=== PATIENT | female | born 1955 | race Caucasian/White ===

== ENCOUNTER 2016-11-11 13:00 | Outpatient (CLI) | payer MEDICAID | END 2016-11-11 13:01 | disposition home or self-care (01) | DX: G35 Multiple sclerosis (principal); F03.91 Unspecified dementia, unspecified severity, with behavioral disturbance; Z74.01 Bed confinement status; Z66 Do not resuscitate; Z51.5 Encounter for palliative care ==

== ENCOUNTER 2017-04-14 14:00 | Outpatient (CLI) | payer MEDICAID ==
--- NOTE | 2017-04-14 23:04 | PROVIDER PROGRESS NOTE ---
Palliative Care Follow Up - Referral Referring Provider: Dr. Bhupinder Willoughby Time of Visit: [id number] Referral setting: Home (patient is seen in her home setting secondary to it is a taxing and considerable effort for her to leave the home related to her functional status, mostly bedbound and dementia with behavioral disturbances) Referral Reason: MS - Information Sources History obtained from: Family (ex Uche, caregiver) Exam limitations: Clinical condition (patient with severe dementia and anxiety) - History of Present Illness Update Brief HPI Update: This is a 61 year old woman with multiple sclerosis, who has mostly been bedbound/chairbound the last two years. She is cared for at home by her ex- Uche. She has moderate to severe dementia with behavioral disturbances, for which I have been adjusting medications to manage her neuropsychiatric symptoms of agitation, anxiety, irritablility, perseverative behaviors, paranoia , hallucinations and ongoing delusions. For the most part there has been improvement, when she is agitated she yells "ow ow ow", currently managed on medication regimen with supplemental lorazepam 0.5 mg for escalation about twice a day, and diazepam (after failed lorazepam) about twice a week. Her caregiver uses several behavioral approaches as first line appropriately. She has fluctuating days as far as physical status, if use diazepam, cannot assist with pivot transfers so makes caregiving more difficult. She has not had any skin issues or infections. She has very poor dentition, teeth are broken off at roots, which has her on soft/pureed diet. Patient has not dental insurance, and would not tolerate at trip to address, currently has not abscessed or caused more pain. Social History - Living Situation Living arrangement: At home Living Situation: With caregiver(s) (cared for soley by ex Uche, who is also her paid [employer] worker. He himself has health limitations, is doing somewhat better but concern remains for termite exterminator helper plan if he declines) Support System: no other support, intermittent family visits, patient unable to tolerate the "commotion" is able to have visitors for about 15 minutes, [facility] visited over the weekend Medications/Allergies - Medications Home Medications: Ambulatory Orders Medication Instructions Recorded Confirmed Buspirone HCl 10 mg PO BID 04/14/17 04/14/17 Diazepam 10 mg PO Q8HR PRN 04/15/17 04/15/17 Lorazepam 0.5 - 1 mg PO Q6HR PRN 04/15/17 04/15/17 Polyethylene Glycol 3350 [Miralax] 17 gm PO DAILY PRN 04/15/17 04/15/17 Quetiapine Fumarate [Seroquel] 100 mg PO BID 04/15/17 04/15/17 Sertraline HCl 100 mg PO DAILY 04/15/17 04/15/17 - Allergies Allergies/Adverse Reactions: Allergies Allergy/AdvReac Type Severity Reaction Status Date / Time No Known Drug Allergies Allergy Verified 04/15/17 07:46 Review of Systems - Constitutional Constitutional: reports: Weakness, Other (remaining weight neutral per husbands perception) - Eyes Eyes: reports: Vision loss - Ears, Nose & Throat Ears, Nose & Throat: reports: Hearing loss, Dental decay (eating soft and pureed diet secondary to teeth decay) - Cardiovascular Cariovascular: denies: Chest pain - Respiratory Respiratory: denies: Cough, SOB at rest, SOB with exertion - Gastrointestinal Gastrointestinal: reports: Constipation (intermittent hard stools). denies: Nausea, Reflux/heartburn - Genitourinary Genitourinary: reports: Incontinence (about 50% of time) - Musculoskeletal Musculoskeletal: reports: Stiffness, Muscle weakness (on good days; can transfer to the chair/wheelchair for meals/bathing; on bad days bedbound and not up as he cannot lift her anymore) - Integumentary Integumentary: reports: Hair changes (grown weigh out; knotted but clean) - Neurological Neurological: reports: General weakness, Memory problems - Psychiatric Psychiatric: reports: Depression, Anxiety, Delusions (patient can speak in full sentences, answers questions socially but inaccurate; reports current regimen for agitation/anxiety mostly helpul; still anxious but responds to lorazepam, using about 2 x a day first; if fails moves on to diazepam but this sedates her and then can't transfer. This happens about 2 x a week) - Endocrine Endocrine: reports: Intolerance to heat (sleeps with just sheet; likes it cool, fan is on) - Hematologic/Lymphatic Hematologic/Lymphatic: denies: Recurrent infections - All Other Systems All Other Systems: reports: Reviewed and negative Physical Examination - Vital Signs Temperature: 97.4 C Pulse Rate: 51 Respiratory Rate: 18 O2 Saturation: 95 Blood Pressure: 92/52 - Physical Exam General Appearance: positive: No acute distress, Alert Eyes Bilateral: positive: Other (some separation of lower eyelid of left eye; not painful or red) ENT: positive: Other (with decaying teeth, broken and soft nubs at gum line) Neck: positive: Trachea midline. negative: Lymphadenopathy (R), Lymphadenopathy (L) Respiratory: positive: Breath sounds nml Cardiovascular: positive: Regular rate & rhythm Abdomen: positive: Nml bowel sounds, No distention Skin: positive: No symptoms, Other (coccyx clear) Extremities: positive: No pedal edema, Other (in bed; moves all extremeties) Neurologic/Psychiatric: positive: Disoriented to place, Disoriented to time, Other (shy today, not as much eye contact; less "chatty" but cooperative) Palliative Care - POLST Patient has POLST: Yes POLST Status: DNR, Comfort Measures Pain: Pain unchanged (patient when anxous yells "ow ow ow" but denies pain) Drowsiness: None Nausea: None Anxiety: Moderate (4-6) Dyspnea: None Anorexia: None Insomnia: Other (can escalate at nights at times, this usually indicates a few bad days with anxiety /agiation) Constipation: Yes Feelings of wellbeing/Perceived Quality of Life: No change (Uche feels patient qol better with balance of the medications; recognizes decline but not significant) Performance Status: Pateint mostly bedbound; up in recliner to eat most of the time if able to participate in pivot transfer and weight bear, otherwise fed in bed. Total assistance with [employer] of bladder and bowel about 50% of time - Palliative Care Discussion: Surrogate decision maker [Uche does make most of the decisions regarding her care ; her DPOA though for medical decision making is her daughter Dilia Calderon [phone] and Kyler is if unable or unwilling as alternate agent]. Vanna unaware of her illness or seriousness of her situation. Uche perceives she is plateaued at this time, small declines both functionally and cogntively, but feel doing better with medications balanced. His health is such, feeling can stay caregiver for the time being, doing some better himself. Has "projects" that keep him busy and distracted. Patient seems content; loves to watch [employer] and [facility] [place] the [place], does not offer any concerns or worries this visit. Impression and Recommendations - Palliative Care Impression: This is a 61 year old woman who is mostly chair/bedbound as a result of her MS and dementia. Her mood is fairly stable, though still having breakthrough anxiety. Current care situation stable for now. Recommendations/Counseling Done: 1. Multiple sclerosis, no significant further deterioration of physical status. Fluctuating ability to bear weight influenced by medications. 2. Dementia with behavioral disturbances. Through descriptions of management of anxiety and agitation, I believe it would be worth increasing the Buspar to 10 mg TID. Counseling on finding balance of sedation/anxiety and engagement with surroundings. Does appear from PRN medication use have made progress. Uche's perception is has made a difference in her management. 3. Advanced Care Planning. Patient without infections, weight loss, or increased symptom burden. Does remain at risk for decline but presenting on plateau today. Both satisfied with current quality of life, POLST in place, no change in care plan needed currently. Have done what is possible as far as putting together LTP if needed. Anticipatory guidance provided. Time Spent: 30 minutes with greater than 50% done in counseling regarding management of medications and anticipatory guidance.
== END 2017-04-14 14:01 | disposition home or self-care (01) ==
LOC: PC 14:00
PROVIDERS: ATTEND Nurse Practitioner Adult Health
DX: Z51.5 Encounter for palliative care (principal); G35 Multiple sclerosis; F03.91 Unspecified dementia, unspecified severity, with behavioral disturbance; Z74.01 Bed confinement status; R53.1 Weakness; H54.7 Unspecified visual loss; H91.90 Unspecified hearing loss, unspecified ear; K02.9 Dental caries, unspecified; K59.00 Constipation, unspecified; R32 Unspecified urinary incontinence; F32.9 Major depressive disorder, single episode, unspecified; F41.9 Anxiety disorder, unspecified; F22 Delusional disorders; Z66 Do not resuscitate
CPT/HCPCS: 99348

== ENCOUNTER 2017-09-11 13:10 | Outpatient (CLI) | payer MEDICAID ==
--- NOTE | 2017-09-11 21:05 | CONSULTATION NOTE ---
Palliative Care Follow Up - Referral Referring Provider: Estrella SMALLS Time of Visit: [id number] Referral setting: Home (Patient is seen in her home setting secondary is considerable and taxing effort for the patient leave her home, she is essentially bedbound able to transfer only on her good days. She is also limited by her severe dementia.) Referral Reason: MS/ Dementia with behavioral disturbances - Information Sources Records reviewed: Previous records reviewed History/Review of Systems obtained from: Family (Uche her ex-, is her anton[employer] worker and has provided most of the information.) Exam limitations: Clinical condition (Patient with limited ability to participate in exam, she can answer yes/no questions though she does confabulate quite a bit. She has no recall are any grounding in reality.) - History of Present Illness Update Brief HPI Update: This is a 62-year-old woman with multiple sclerosis, who is mostly been bedbound /chair bound for the last 2 years. She has had functional decline and appears to have had some weight loss, but does have underlying dementia with behavioral disturbances. Her neuropsychiatric symptoms include agitation anxiety irritability, perseverative behaviors, paranoia, hallucinations, and ongoing delusions. She is no longer responding to intermittent Lorazepam, but does respond to the diazepam when she gets as severely agitated. They are needing to use about 1-1 and half tabs a day again fluctuating status regarding this. She can go for long periods of time without any need for breakthrough medication For her behaviors, thus the medicines to titrate her antipsychotics any further. She has not had any skin breakdown, or infections, she has very poor dentition with teeth are broken at the roots and this is on a soft pured diet. At this point in time she not be able to tolerate a trip to have her teeth evaluated. No history been able to leave the home for doctor's appointments. Thus palliative care has been providing home visits to check on patient, address 's questions, and adjust medications accordingly. Social History - Living Situation Living arrangement: At home Living Situation: With caregiver(s) Support System: She does have children, the rarely visit, she has enjoyed it seen her new grandbaby over the holidays. Otherwise they are quite isolated. Medications/Allergies - Medications Home Medications: Ambulatory Orders Medication Instructions Recorded Confirmed Buspirone HCl 10 mg PO TID 04/14/17 09/13/17 Polyethylene Glycol 3350 [Miralax] 17 gm PO DAILY PRN 04/15/17 09/13/17 Quetiapine Fumarate [Seroquel] 100 mg PO BID 04/15/17 09/13/17 Sertraline HCl 100 mg PO DAILY 04/15/17 09/13/17 diazePAM [Diazepam] 5 - 10 mg PO Q8HR PRN 04/15/17 09/13/17 - Allergies Allergies/Adverse Reactions: Allergies Allergy/AdvReac Type Severity Reaction Status Date / Time No Known Drug Allergies Allergy Verified 04/15/17 07:46 Review of Systems - Constitutional Constitutional: reports: Fatigue, Weight loss (Unable to quantify just appears somewhat thinner, has been his concurrence with this. Her diet has become more challenging with only been able to take soft or pured foods. Does feel like he keeps a well-hydrated) - Eyes Eyes: reports: Vision loss (Unable to quantify changes but patient reports it is worse) - Ears, Nose & Throat Ears, Nose & Throat: reports: Dental decay. denies: Dental pain - Gastrointestinal Gastrointestinal: reports: Constipation (intermittent), Good appetite - Genitourinary Genitourinary: reports: Incontinence - Musculoskeletal Musculoskeletal: reports: Stiffness, Muscle weakness (Fluctuating days as far as patient able to participate in pivot transfers. With has-beens increasing difficulty with his own health patient needs to be able to weight-bear he cannot hold her up. If he finds that she is too weak he does not try to attempt transfer.) - Integumentary Integumentary: reports: Dryness - Neurological Neurological: reports: General weakness, Memory problems (Patient seems to be having more trouble tracking conversation, less full sentences, no initiation of questions. She does not present with word salad but definitely with word finding difficulty.) - Psychiatric Psychiatric: reports: Anxiety, Delusions, Hallucinations, Aggitation, Behavior disturbances (Has been reports "spells". These can be escalated for unknown reason since, he does try and figure out just like "a toddler" whether it is pain, temperature, needing to go to the bathroom, or hunger. Sometimes she just gets herself escalating and he uses the diazepam with success.) - Endocrine Endocrine: reports: Intolerance to heat (Patient likes a temperature in the room quite cool) - Hematologic/Lymphatic Hematologic/Lymphatic: denies: Recurrent infections - All Other Systems All Other Systems: reports: Reviewed and negative Physical Exam - Vital Signs Temperature: 97.8 C Pulse Rate: 76 Respiratory Rate: 18 O2 Saturation: 96 (ra @ rest) Blood Pressure: 102/62 - Physical Exam General Appearance: positive: No acute distress, Anxious Eyes Bilateral: positive: Normal inspection ENT: positive: Other (gums with swelling; patient picks and pulls at soft decaying teeth; no abscesses noted; patient denies pain on exam; does appear worsening) Neck: positive: Trachea midline. negative: Lymphadenopathy (R), Lymphadenopathy (L) Cardiovascular: positive: Regular rate & rhythm Respiratory: positive: Breath sounds nml Abdomen: positive: Non-tender, Soft, Nml bowel sounds Skin: positive: Pallor, Dryness. negative: Pressure wound Extremities: positive: No pedal edema, Other (Patient bedbound, was able to move something that those far as bed mobility, no signs of difficulty in moving any of her extremities.) Neurologic/Psychiatric: positive: Disoriented to place, Disoriented to time, Weakness, Flat affect Palliative Care - POLST Patient has POLST: Yes POLST Status: DNR, Comfort Measures Pain: Comment (She does not appear to have pain though when asked reports her back hurts, but she does have good bed mobility and her caregiver reports she does not report this on a consistent basisShe denies any sharp shooting pains, any numbness or tingling in her extremities,) Constipation: Yes, Unmanaged (Had been trying intermittent bowel meds, with "blow outs" attempting to find a good bowel program. Suspect has something to do with her diet and decrease fiber as well as bedbound), Intermittent constipation Performance Status: Patient is bedbound for the most part, on good days can give it to wheelchair or rolling walker, to get to the bathroom. They do try and get her there for bowel movements if possible otherwise she is very combative in changing of her diapers at times. He reports this is gotten easier over time, as she is gotten less strength, and it depends on the day it is not consistent. I would put her at a PPS of 40% - Palliative Care Discussion: Discussed at length concern regarding patient's current situation. There is surrogate decision maker is her daughter Dilia Calderon [phone]. Kyler is available as an alternative agent. Patient herself has very little insight into the seriousness of her illness or her situation. He currently is looking at his health, and wondering at this point how much longer he can support Vanna. He is expecting a transition in the next few months, he will be in touch with his physician obstetrician for the care for her. Patient had a difficult last 24 hours as the Internet went down, she was somewhat distressed As for the most part she spends her time watching the [employer]'s another easy-going shows. She gets quite bored, Uche does try to talk her down when she is in these episodes, but it has been a difficult road for them both. Results - Lab Results Lab and Imaging Results: Into 2 to draw labs, patient has very thin veins blue twice one in the left antecubital one on the right hand. Uche also reported she is probably less than hydrated given her difficult time the last 24 hours, the patient is unable to get out for labs. These were just going to be done in the context they have not been done for a while and she is on multiple medications. Impression and Recommendations - Palliative Care Impression: This is a 62-year-old woman with multiple sclerosis, and dementia with behavioral disturbances. She does show progression of her dementia, not so much her symptoms of MS other though she is much weaker, she is having less time that she is able to pivot transfer, he does not have signs or symptoms of neurogenic bladder or bowel. She is incontinent mostly with urine, intermittently with bowel. This is progression. She is going to be need to be placed in the next 2-3 months, Uche has tried previously to do some of this foot work, he is going to have to defer to her caseworkers. Recommendations/Counseling Done: 1. Multiple sclerosis, no significant further deterioration of her physical status, fluctuating ability to bear weight.Patient has hospital bed and appropriate equipment at this point in time, no further intervention needed 2. Dementia with behavioral disturbances. Patient on Seroquel 100 mg twice daily, BuSpar 10 mg 3 times daily, and her sertraline 100 mg daily. We did review her current behaviors, weighing benefits and burdens of further titration , has been intermittent and not sustained and managed currently with as needed dosing of diazepam which can be 1-2 doses a day or none for several days. Given there is no persistence of these symptoms and the diazepam is working for breakthrough anxiety and behaviors will leave it at this point in time. Advanced care planning patient's been without infections she does present today with small but perceivable weight loss in appearance, no change in her symptom burden. She of course does remain at risk for decline but currently presents is stable. Unfortunately unable to draw her labs today. She is actually quite cooperative to this process. She does have a DEEPTI ST in place as well as her daughter as DPO A, unfortunately Uche will have to default to the [facility] case assistant to find placement at the point in time he feels he can no longer care for her which she suspect is in the next few months. This is attributed to his own health problems and no longer able to meeting her needs. He had one a place for close to where family could visit, at this point in time he will defer to what ever is available. In looking at the [place] GNE index which looks a population of community dwelling adults age 65 years older and the outcome of all causes 1 year mortality. As a risk calculator cannot predict the future for any one individual. Risk calculator is given an estimate of how many people with similar risk factors will live and that cannot identify who will live and he will her score is a 4 which gives her risk of 1 year mortality of 14.6% Time Spent: 85 minutes with greater than 50% of this done in counseling and anticipatory guidance, weighing benefits and burdens of titrating meds at this point in time will make no changes, attempted blood draw 2 will attempt her next visit. Uche will contact me if further concerns are she is placed to allow palliative care to [place]
== END 2017-09-11 13:11 | disposition home or self-care (01) ==
LOC: PC 13:10
PROVIDERS: ATTEND Nurse Practitioner Adult Health
DX: Z51.5 Encounter for palliative care (principal); G35 Multiple sclerosis; F03.91 Unspecified dementia, unspecified severity, with behavioral disturbance; Z99.3 Dependence on wheelchair; Z74.01 Bed confinement status; R53.83 Other fatigue; K59.00 Constipation, unspecified; M62.81 Muscle weakness (generalized); F41.9 Anxiety disorder, unspecified; Z66 Do not resuscitate
CPT/HCPCS: 99349

== ENCOUNTER 2017-12-15 15:43 | Outpatient (CLI) | payer MEDICAID ==
--- NOTE | 2017-12-15 17:11 | CONSULTATION NOTE ---
Palliative Care Follow Up - Referral Referring Provider: Estrella SMALLS Time of Visit: 6315-3782 Referral setting: Home (It is a taxing and considerable effort for the patient to leave the home, she is mostly bedbound and would need ambulance transfer) Referral Reason: Multiple Sclerosis - Information Sources Records reviewed: Previous records reviewed History/Review of Systems obtained from: Family (caregiver Uche providing ROS) Exam limitations: Clinical condition (patient with short term memory issues; confabulation and delusions; able to answer yes and no; but answers unreliable) - History of Present Illness Update Brief HPI Update: This is a 62-year-old woman with multiple sclerosis, who has been mostly bedbound/chair bound for the last 2 years. She continues to have functional decline, she spends most of her day in bed, he does transfer her when she is able to bear weight and pivot, about 3 times a day to the arm chair next to her bed. He only occasionally uses the wheelchair, she has no trunk strength, does support her with sheet to transfer in bathroom for bowel movements. Long discussion regarding considering transitioning to another setting, particularly [facility]. He does understand patient at this point would not be able to be restrained in any way, including bed rails. She does have rail on back side of bed but uses that only for support when sitting up, has not fallen out of bed with left side open. He reports he does pivot her when she is feeling better, to the chair, but patient's legs often give out, and given his weakened back and inability to lift her, she has slid to the floor, as well as he is needed to support her upper torso. She is only able to tolerate being up in the chair about 15 minutes related to fatigue. She does have some scabs on her right knee, and bruising on her left thigh which are fading. She also has some bruising on her left upper arm as a result of these episodes where her legs give out. He reports she has not had any falls from impulsivity, nor has she tried to get out of bed, or out of the chair. Patient presents as much weaker, today she does have some upper extremity tremors, she does have upper and lower extremity muscle wasting. She does eat, has not had any choking, but given her poor dentition needs soft foods. Patient has always been cordial, interacted without any difficulty with exam, have been seen her since 10/16/2015. She does present with confabulation, delusions as far as her son dying recently, this was a event in the distant past , and very poor short-term memory issues. Her reports she still has anxiety attacks, these manifest as patient gets anxious, twisted her hair, and with curling up in the bed. He has been using the diazepam 10 mg with good results, she does have episodic moaning with this as well which responds to the diazepam , usually needs 1-2 a day, some days does not need some at all. Caregivers health, continues to deteriorate, he is no longer able to support her weight related to his back pain. He is also come to a crucial point as his lease will be up, he has been in touch with her case technician Hillary as well as her director Marlene. He was hoping to have her [facility], had met with Alyse, and understanding this point in time is this is not an option given her fall risk and previous behaviors documented. It was proposed to consider trial respite stay, unable to confirm care needs other than reported as my interactions have all been without problems. Social History - Living Situation Living arrangement: At home Living Situation: With caregiver(s) Support System: Uche, patient's ex-, has been her caregiver for the last 5 years. He is no longer able to physically do this, as well as feels like he needs to move on. Her children are not in a situation to be able to take on her caregiving needs, her daughter Dilia is her DPOAE. There is much concern about patient is a vulnerable adult, and seem to be homeless. Medications/Allergies - Medications Home Medications: Ambulatory Orders Medication Instructions Recorded Confirmed Buspirone HCl 10 mg PO TID 04/14/17 12/15/17 Quetiapine Fumarate [Seroquel] 100 mg PO BID 04/15/17 12/15/17 Sertraline HCl 100 mg PO ACHS 04/15/17 12/15/17 diazePAM [Diazepam] 5 - 10 mg PO Q8HR PRN 04/15/17 12/15/17 Cholecalciferol (Vitamin D3) 2,000 units PO DAILY 12/15/17 12/15/17 [Vitamin D3] Sennosides [Senna Lax] 8.6 mg PO DAILY PRN 12/15/17 12/15/17 - Allergies Allergies/Adverse Reactions: Allergies Allergy/AdvReac Type Severity Reaction Status Date / Time No Known Drug Allergies Allergy Verified 04/15/17 07:46 Review of Systems - Constitutional Constitutional: reports: Weakness, Weight loss (Uche feel minimal baseline wt. 115) - Eyes Eyes: reports: Vision loss - Ears, Nose & Throat Ears, Nose & Throat: reports: Hearing loss (mild), Dental decay (teeth rotting at gumline; no abcesses noted; denies pain) - Respiratory Respiratory: reports: Cough (in evenings not related to eating) - Genitourinary Genitourinary: reports: Incontinence - Musculoskeletal Musculoskeletal: reports: Transfer issues (patient often qing with pivot transfer if fatgued; has salazar if goes to floor) - Integumentary Integumentary: reports: Dryness - Neurological Neurological: reports: General weakness, Memory problems, Other (tremors) - Psychiatric Psychiatric: reports: Anxiety - Endocrine Endocrine: reports: Intolerance to heat - Hematologic/Lymphatic Hematologic/Lymphatic: denies: Recurrent infections - All Other Systems All Other Systems: reports: Reviewed and negative Physical Exam - Vital Signs Temperature: 96.8 C Pulse Rate: 78 Respiratory Rate: 18 O2 Saturation: 93 (ra @ rest) Blood Pressure: 122/72 - Physical Exam General Appearance: positive: No acute distress, Alert Eyes Bilateral: positive: Normal inspection ENT: positive: No signs of dehydration Neck: positive: Trachea midline. negative: Lymphadenopathy (R), Lymphadenopathy (L) Cardiovascular: positive: Regular rate & rhythm Respiratory: positive: Breath sounds nml Abdomen: positive: Non-tender, Soft, Nml bowel sounds Skin: positive: Dryness, Bruising. negative: Pressure wound Extremities: positive: No pedal edema, Other (muscle wasting upper and lower extremity) Neurologic/Psychiatric: positive: Disoriented to person, Disoriented to place, Disoriented to time, Weakness, Depressed mood/affect, Flat affect Palliative Care - POLST Patient has POLST: Yes POLST Status: DNR, Comfort Measures Pain: No pain Performance Status: Patient dependent for all the ADLs, fluctuating status for pivot transfers, fluctuating status as far as able to self-feed. Patient is mostly bedbound, up a few times for meals in recliner. - Palliative Care Discussion: Discussed at length again patient's current situation with antonio caregiver and ex- Uche. He is quite frustrated as he has felt like he has done due diligence in trying to locate a new setting for her. He has been in touch with his student financial aid manager Hillary, is unclear how much assistance he is going to be able to get from them. Patient denies any worries, when asked started talking about her son who , she was easily redirected to focus on her new grandson Juan Jose. She does live somewhat a limited life, she does enjoy watching the Chaudhary's, I suspect any kind of change or transition will take some time for her to adjust to. She also though may thrive with increased stimulation and interaction with other caregivers. Goals continue to be on a focus of comfort, recognizing her quality of life is limited, she has had ongoing slow decline, but no acute infections are escalation in symptoms. Impression and Recommendations - Palliative Care Impression: This is a 62-year-old woman with multiple sclerosis, and dementia with behavioral disturbances. She continues to show progression of her dementia, her behaviors have improved as far as agitation, though she still continues to have significant anxiety. She has had functional decline, she is incontinent mostly of urine, intermittently with bowel. It is more urgent now as far as placement need, palliative care [place] Recommendations/Counseling Done: 1. Multiple sclerosis. Patient has had continued functional decline. She has fluctuating status as well as increased tremors in her upper extremities. She denies any pain or discomfort. She is mostly bedbound, limited bed mobility. 2. Dementia with behavioral disturbances. Patient on Seroquel 100 mg twice daily, BuSpar 10 mg 3 times a day, and her sertraline 100 mg at bedtime. She has intermittent need for diazepam to manage her anxiety 1-2 doses a day, does have room for titration of medications if needed for adjustment to institution. At this point in time agreement was to leave things as is, as she has been doing fairly well on her current dosing. 3. Advanced care planning. Patient does have a DEEPTI ST in place, her daughter Dilia Calderon [phone] is her durable power of health trust and estates attorney. Uche has been the one working on finding placement, they have until the end of November, there is been conversation and discussion about possible respite stay as an interim measure. Uche's understanding is he is also to pursue other avenues, though has not been able to make progress with this in the past despite diligence. Time Spent: 50 minutes with greater than 50% of this done in counseling and anticipatory guidance, evaluating patient's current status, coordination of care regarding case technician, and pending placement.
== END 2017-12-15 15:44 | disposition home or self-care (01) ==
LOC: PC 15:43
PROVIDERS: ATTEND Nurse Practitioner Adult Health
DX: Z51.5 Encounter for palliative care (principal); G35 Multiple sclerosis; F03.91 Unspecified dementia, unspecified severity, with behavioral disturbance; F41.9 Anxiety disorder, unspecified; R53.1 Weakness; Z74.01 Bed confinement status; Z66 Do not resuscitate
CPT/HCPCS: 99349

== ENCOUNTER 2018-03-18 12:45 | Outpatient (CLI) | payer MEDICAID ==
--- NOTE | 2018-03-18 20:15 | CONSULTATION NOTE ---
Palliative Care Follow Up - Referral Referring Provider: Estrella SMALLS Time of Visit: 0015-1146 Referral setting: Home (It is a taxing and considerable effort for the patient to leave the home secondary to bedbound status) Referral Reason: MS/Dementia with behavioral disturbances - Information Sources Records reviewed: Previous records reviewed History/Review of Systems obtained from: Family ( provides the history) Exam limitations: Clinical condition (patient with dementia) - History of Present Illness Update Brief HPI Update: This is a 62-year-old woman with multiple sclerosis, who is mostly bedbound, Cared for by her ex- who has significant health problems himself. On good days he is able to transfer her to the rolling walker to ease toileting, but patient with fluctuating weakness and cognition, and legs will give out. During these times he does easier to the floor, and uses a Dillon transfer to get her back in bed. She does have significant fatigue, she does have some upper and lower extremity muscle wasting. She does have continued subtle changes of decline, she is less able to feed herself and needing increased assistance, more difficulty with bed mobility, and with cognitive decline needing more cueing and less able to help participate in her care. She also has underlying dementia with behavioral disturbances, because she is weaker is her easier to handle particularly around. Care and toileting. She does have intermittent anxiety, with escalation often needs diazepam, these are manifested by twisting her hair crying out and some delusions. He has cut her hair which has helped as far as some of their interactions, as she was not allowing for him to wash it or brushing on a regular basis and it was getting quite long. In spring, they were going to lose at least, Uche had made over 100 calls to various different facilities, he has put her name on list. Had found no place to be able to transition her to. This was a huge anxiety for them both, his landlord has allowed him to stay, but this has not addressed the issue of Uche's ongoing decline in health, reports they are "managing day-to-day". Social History - Living Situation Living arrangement: At home Living Situation: With caregiver(s) (patient cared for by ex-; extension of lease given; caregiver's health still of concern; Has been her caregiver for over 5 years,) Medications/Allergies - Medications Home Medications: Ambulatory Orders Medication Instructions Recorded Confirmed Buspirone HCl 10 mg PO TID 04/14/17 03/18/18 Quetiapine Fumarate [Seroquel] 100 mg PO BID 04/15/17 03/18/18 Sertraline HCl 100 mg PO ACHS 04/15/17 03/18/18 diazePAM [Diazepam] 5 - 10 mg PO Q8HR PRN 04/15/17 03/18/18 Cholecalciferol (Vitamin D3) 2,000 units PO DAILY 12/15/17 03/18/18 [Vitamin D3] Docusate Sodium [Dulcolax Stool 100 mg PO PRN PRN 03/18/18 03/18/18 Softener] - Allergies Allergies/Adverse Reactions: Allergies Allergy/AdvReac Type Severity Reaction Status Date / Time No Known Drug Allergies Allergy Verified 04/15/17 07:46 Review of Systems - Constitutional Constitutional: reports: Weight loss (appears thinner; no wts) - Ears, Nose & Throat Ears, Nose & Throat: reports: Dental decay (teeth breaking off at gum line; no s /s abcess/infection currently; has not observed any pain at this time; does not allow oral care) - Cardiovascular Cardiovascular: denies: Edema - Respiratory Respiratory: denies: Cough, SOB at rest - Gastrointestinal Gastrointestinal: reports: Constipation (intermittent responsive to SHONDA), Other (fluctuating appetite; usually eats a good breakfast; soft foods) - Genitourinary Genitourinary: reports: Incontinence - Musculoskeletal Musculoskeletal: reports: Stiffness, Muscle weakness, Transfer issues ( flucuating weakness; legs give out then needs to use dillon lift-about two times a week) - Integumentary Integumentary: reports: Hair changes (cut hair because patient not allow it to be brushed;) - Neurological Neurological: reports: General weakness, Memory problems (patient answers yes/ no questions unable to remember answers) - Psychiatric Psychiatric: reports: Behavior disturbances (mood fluctuates through day; often awake through night) - Endocrine Endocrine: reports: Intolerance to heat - Hematologic/Lymphatic Hematologic/Lymphatic: denies: Recurrent infections - All Other Systems All Other Systems: reports: Reviewed and negative Physical Exam - Vital Signs Temperature: 96.4 C Pulse Rate: 91 Respiratory Rate: 18 O2 Saturation: 94 (ra @ rest) Blood Pressure: 132/68 - Physical Exam General Appearance: positive: No acute distress Eyes Bilateral: positive: Normal inspection ENT: positive: Other (broken teeth along gum line; no s/s infection at this time ) Neck: positive: No JVD, Trachea midline Cardiovascular: positive: Regular rate & rhythm Respiratory: positive: Breath sounds nml Abdomen: positive: Non-tender, Soft, Nml bowel sounds Skin: positive: Pallor. negative: Pressure wound Extremities: positive: No pedal edema, Other (bedbound for exam; weak but can move all extremities on command; difficulty with bed mobilty assisted to turn) Neurologic/Psychiatric: positive: Disoriented to place, Disoriented to time, Weakness Palliative Care - POLST Patient has POLST: Yes POLST Status: DNR, Comfort Measures Pain: Location (Patient denies pain, Uche reports does seem to be uncomfortable at times i.e. if has constipation; difficulty communicating her distress) Sleep: Variable sleep pattern (Patient tends to be very wakeful late into the night, then sleeps quite a bit during the day. Does appear to be sleeping somewhat more, she does like to watch TV her favorite show is the Virool. He does not put anything disturbing on the television for her.) Performance Status: Patient dependent on caregiver for all ADLs and IADLs. He tries to read her fluctuating physical and functional status, to avoid risk of falls, it is easier to toilet her though in the bathroom, as far as changing in. Care as she can be less than cooperative in the bed and it is difficult for him to change her with his back. He reports and abuse in the Dillon about twice a week , he does know he can call for lift assist. She has not had any acute injuries , does get some bruising occasionally on her knees and her transfers - Palliative Care Discussion: Patient is very childlike in her appearance, is interactive with myself. No meaningful conversation or initiation of questions, unclear if her answers are correct though she is able to make eye contact and answer easy yes/no questions. She does follow some directions, but is quite limited as she is mostly bedbound. Caregiver does perceive a limited quality of life, but feels transitioning to another setting most likely would be even more distressful for her. There son is moving to [place], is unclear if is going to be more help. In discussing whether to use some of his antonio hours for respite, they are dependent on the finances to be able to stay there so this is a limited option. It is a difficult situation for both of them, Uche continues to try and take it just day by day. Impression and Recommendations - Palliative Care Impression: This is a 62-year-old woman with progressive dementia with behavioral disturbances, currently medicated by her current medication regimen. She also has underlying multiple sclerosis, with decreasing functional decline. Her current living situation is on hold, remains very tenuous as is dependent on her caregivers health. Palliative care available to provide support as issues arise, patient is bedbound and unable to get out of the house for appointments Recommendations/Counseling Done: 1. Dementia with behavioral disturbances. Patient currently on Seroquel 100 mg twice a day, BuSpar 10 mg 3 times daily, and sertraline 100 mg at bedtime. She has intermittent need for diazepam to manage her anxiety, there has been decreased use with this but averages about once a day. There is room for titration, but feels current balance is good of sedation and neuropsychiatric behaviors. 2. Multiple sclerosis. Patient continues to have ongoing subtle decline, she does have fluctuating both cognitive and physical status, putting her at risk for falls. Her care needs are becoming more complex, she is also needing assistance with feeding now. She is incontinent of bowel and bladder. She has not had any infections. 3. Advanced care planning. Patient does have a DEEPTI ST in place, do not attempt resuscitation and comfort measures. Her daughter Dilia Calderon [phone] is her DURABLE POWER OF BELT BACK OPERATOR, but is minimally involved. Uche her ex- is her antonio worker, and provides oversight in her care. Situation remains tenuous as far as no identified placement options, his commitment is to continue to provide support as long as he is physically able. Time Spent: 30 minutes with greater than 50% of this done in counseling, review of her medications and behaviors, and anticipatory guidance.
== END 2018-03-18 12:46 | disposition home or self-care (01) ==
LOC: PC 12:45
PROVIDERS: ATTEND Nurse Practitioner Adult Health
DX: Z51.5 Encounter for palliative care (principal); F03.91 Unspecified dementia, unspecified severity, with behavioral disturbance; G35 Multiple sclerosis; Z74.01 Bed confinement status; F41.9 Anxiety disorder, unspecified; K59.00 Constipation, unspecified; Z66 Do not resuscitate
CPT/HCPCS: 99348

== ENCOUNTER 2018-07-29 13:30 | Outpatient (CLI) | payer MEDICAID ==
--- NOTE | 2018-07-29 21:13 | CONSULTATION NOTE ---
Palliative Care Follow Up - Referral Referring Provider: Estrella SMALLS Time of Visit: [id number] Referral setting: Home (Patient is currently bedbound, will be a taxing and considerable effort for the patient leave the home would need ambulance transfer.) Referral Reason: MS/Dementia/Dysphagia - Information Sources Records reviewed: Previous records reviewed History/Review of Systems obtained from: Family (darlene ESPARZA caregiver, provides most of history; patient with some conversational sentences; but does not initiate information or provide accurate ROS) Exam limitations: Clinical condition (moderate dementia) - History of Present Illness Update Brief HPI Update: This is a 63-year-old woman I have been caring for on palliative care since 10/16/2015. She has advanced multiple sclerosis, who has had ongoing steady functional and cognitive decline. She was diagnosed originally in 2001 with her MS, with symptoms related to visual changes, and lower extremity weakness. She was originally able to ambulate a few steps, toilet, but has had ongoing decline to pivot transfers, now to bedbound status. She has had upper and lower extremity muscle wasting, does have some spasticity, intermittent discomfort. Her most recent presenting symptoms, which is why he has been called for me to visit, she has developed progressive dysphagia over the last several weeks to months. She currently is on a modified soft diet, though had 2 significant choking episodes last week which frightened her caregiver. She is able to drink thin fluids, does have some food pocketing, and unable to manage boluses of food and less is cut up quite tiny. Her cognitive status has on admit couple years ago was fairly significant behavioral symptoms, lashing out, screaming profanities, severe anxiety and agitation. Have titrated her meds to appears to a stable state. She has needed less diazepam for her outbursts, though still now patterns as an sundowning 25 and 8 in the evening. He reports she no longer screams and cries out but does still contort and seems in some kind of emotional distress, this does respond to the diazepam. Patient is easily fatigued, just through our exam she became quite tired. No signs or symptoms of breathlessness, no signs or symptoms of UTI. He reports she is sleeping 12-14 hours a day. Patient's most, and distraction is she does like to watch the [employer] on TV. Caregiver is now having to feed her and provide much more hands on care. Social History - Living Situation Living arrangement: At home Living Situation: With caregiver(s) (Patient has been cared for by her ex- Uche for greater than 5 years, he is paid as her antonio worker. Her daughter Dilia Calderon has both financial and medical durable power of health criminal attorney though Uche does make the day-to-day decisions regarding her care. She does see her children from time to time, she does have 6 children, one who has since passed. She has been on would be [place] for about 5 years. Patient was to be evicted from mobile home, X has been Uche does help health issues himself, unable to find placement for her but received a reprieve from the landlord. Uche is committed to caring for as long as he can physically, with her bedbound status and decreased behaviors her care has become easier.) Medications/Allergies - Medications Home Medications: Ambulatory Orders Medication Instructions Recorded Confirmed Buspirone HCl 10 mg PO TID 04/14/17 07/29/18 Quetiapine Fumarate [Seroquel] 100 mg PO BID 04/15/17 07/29/18 Sertraline HCl 100 mg PO ACHS 04/15/17 07/29/18 diazePAM [Diazepam] 5 - 10 mg PO Q8HR PRN 04/15/17 07/29/18 Cholecalciferol (Vitamin D3) 2,000 units PO DAILY 12/15/17 07/29/18 [Vitamin D3] Docusate Sodium [Dulcolax Stool 100 mg PO PRN PRN 03/18/18 07/29/18 Softener] - Allergies Allergies/Adverse Reactions: Allergies Allergy/AdvReac Type Severity Reaction Status Date / Time No Known Drug Allergies Allergy Verified 04/15/17 07:46 Review of Systems - Constitutional Constitutional: reports: Fatigue, Weight loss (pateint eating less, needing to have food cut in small pieces; reportedly gets 36 oz fluid a day). denies: Fever - Ears, Nose & Throat Ears, Nose & Throat: reports: Dental decay, Other (gums with swelling) - Respiratory Respiratory: reports: Cough (when eating). denies: SOB at rest - Gastrointestinal Gastrointestinal: reports: Constipation (bowels move about every 6-7 days), Other (increased diffiuclty with eating; dysphagia see HPI). denies: Nausea - Genitourinary Genitourinary: reports: Incontinence - Musculoskeletal Musculoskeletal: reports: Stiffness, Muscle weakness, Transfer issues (uses dillon to lift to change bed), Other (bedbound) - Integumentary Integumentary: reports: Dryness - Neurological Neurological: reports: General weakness, Memory problems - Psychiatric Psychiatric: reports: Depression, Anxiety, Delusions, Hallucinations, Behavior disturbances (decreasing) - Hematologic/Lymphatic Hematologic/Lymphatic: denies: Recurrent infections - All Other Systems All Other Systems: reports: Reviewed and negative Physical Exam - Vital Signs Temperature: 97.3 C Pulse Rate: 83 Respiratory Rate: 18 O2 Saturation: 91 (ra @ rest) Blood Pressure: 92/54 (faint to hear) - Physical Exam General Appearance: positive: No acute distress, Other (appears very tired; has not been recently medicated) Eyes Bilateral: positive: Normal inspection ENT: positive: Other (gums swollen; teeth broken at gumline) Neck: positive: Trachea midline Cardiovascular: positive: Regular rate & rhythm Respiratory: positive: Diminished in bases. negative: Wheezes, Rales, Rhonchi Abdomen: positive: Non-tender, Soft Skin: positive: Pallor, Dryness. negative: Pressure wound Extremities: positive: No pedal edema, Other (Patient very stiff and difficult to straighten extremities, tends to pull up, unclear if resistant, related disease, or behaviors. Patient has been bedbound for several months now) Neurologic/Psychiatric: positive: Disoriented to place, Disoriented to time, Weakness, Flat affect Palliative Care - POLST Patient has POLST: Yes POLST Status: DNR, Comfort Measures Pain: No pain Tiredness/Fatigue: Severe (7-10) Drowsiness/Sedation: Moderate (4-6) Nausea: None Depression: Moderate (4-6) Anxiety: Moderate (4-6) Constipation: Yes Performance Status: Patient is bedbound, this is a decline. Patient is needing feeding, pacing, has now presented with dysphagia and possible aspiration. Patient is bathed weekly, bed change. Chi[place]-care provided on a regular basis patient is incontinent of both bowel and bladder. Patient is sleeping more will put her at a PPS of 40% - Palliative Care Discussion: Introduced my recommendation regarding referral to hospice. Uche is very introverted and isolated, has only allowed me to come when there are care needs and for medication refills. Is very congenial and open to input, counseling, and appreciates the support. Patient with less behaviors, but does take a while to gain her trust and acceptance. She did seem to recognize me. He is hesitant to have people coming on a regular basis, I did review the hospice benefit, minimal of nursing visits and less patient changing every 2 weeks, as well as time to meet the team. He does feel with her current decline, that her care is actually easier, particularly with her behaviors not so ramped up. Did share given patient's cognitive decline, most likely unable to access [facility] if needed assist, and now she has high risk for choking even on saliva. Would not recommend leaving her alone. Hospice would be able to provide respite so he can get out and do errands and shopping etc. he reports he needs to think about it, will need to contact patient's daughter as she is at the POA. He perceives she is declining as well, when shared I felt like he she fits now in the less than 6 months prognosis category, he is in agreement. Counseling provided regarding pneumonia as a end of life event, option to treat or not treat, as well as if not treatment focus on comfort where hospice would become a good support for him. He will consider it if not soon, at least in the future. Patient in the past when she is more verbal and interactive, has somewhat perseverated on , Uche did share his brother came a couple months ago to visit, though her cognitive status is declined, may he reports she did have enough cognizant to ask him if he came to see her before she . They did as a couple lose a son to heart attack, he had down's syndrome and often comes up in past in conversation. Impression and Recommendations - Palliative Care Impression: This is a 63-year-old woman with progressive dementia and behavioral disturbances, multiple sclerosis, now presents with dysphagia and high risk for aspiration. She is cared for at home by her ex- Uche as his antonio worker, recommendation today to transition to hospice given patient's ongoing decline. Palliative care to continue to provide support until transition made. Recommendations/Counseling Done: 1. Dysphagia. Patient with decayed teeth, has always had to have modified diet secondary to chewing, now presents with significant difficulty with swallowing, choking, has been a gradual decline. Counseling and recommended pured diet, positioning to prevent aspiration. Instructed on crushing meds and putting them in pudding to better decrease her aspiration risk.Counseling provided can call 911 if choking or need assist, does not need to take her to the hospital but would provide assistance. Caregiver relieved with this information, encouraged to greet them at the door with DEEPTI ST form. Discussed if the role of hospice, could have speech therapy come out and give further instructions if would be helpful. 2. Dementia with behavioral disturbances. Patient does appear to have some sundowning, though is needed only diazepam during this time. From 6-8. Otherwise she is managed currently on her Seroquel 100 mg twice daily, BuSpar 10 mg 3 times daily secondary severe anxiety, and sertraline 100 mg at bedtime. 3. Multiple sclerosis. Patient continues to have ongoing decline, she now is bedbound. She is incontinent of bowel and bladder. They do use a Dillon for bed changes. Patient does present with stiffness, unclear if these are contractures, or related to her disease process. 4 Advanced care planning. Counseling provided regarding hospice and hospice benefit. Patient very difficult with strangers, though does seem much more mellow and less agitated with current medication regimen and decline in both cognitive and functional health. Uche reticent as does like his privacy and quiet, does find it overwhelming to have people visiting or in the house.Patient does have a DEEPTI ST in place, as a do not attempt resuscitation and comfort measures. Her daughter Dilia Calderon [phone] is her durable power of health criminal attorney, but is minimally involved. Uche her ex- is her antonio worker for greater than 5 years, and provides oversight in her care. Uche's health is compromised as well, though her care needs are less as she is deteriorated. He has tried multiple times to explore other placement options but has not been able to, though this is related to her past behaviors and most likely would better fit into a alf facility via environment at this point.He will ponder hospice referral either sooner or in the future and contact me when he is ready. Time Spent: Time spent 45 minutes with greater than 50% of this done in counseling regarding hospice benefit to management of dysphagia and anticipatory guidance and expected decline
== END 2018-07-29 13:31 | disposition home or self-care (01) ==
LOC: PC 13:30
PROVIDERS: ATTEND Nurse Practitioner Adult Health
DX: Z51.5 Encounter for palliative care (principal); R13.10 Dysphagia, unspecified; F03.91 Unspecified dementia, unspecified severity, with behavioral disturbance; G35 Multiple sclerosis; Z74.01 Bed confinement status; F05 Delirium due to known physiological condition; K59.00 Constipation, unspecified; Z66 Do not resuscitate
CPT/HCPCS: 99349

== ENCOUNTER 2018-09-04 17:27 | Outpatient (CLI) | payer MEDICAID | END 2018-09-04 17:28 | disposition critical access hospital (66) | LOC: EMS 17:27 | PROVIDERS: ATTEND Surgery | DX: R63.8 Other symptoms and signs concerning food and fluid intake (principal) | CPT/HCPCS: A0425; A0429; A0999 ==

== ENCOUNTER 2018-09-04 17:39 | Observation (INO) | payer MEDICAID ==
[2018-09-04] MEDS ORDERED: SODIUM CHLORIDE 0.9% 1,000 ML IV ONE (18:21)
--- NOTE | 2018-09-04 18:23 | ED Physician Documentation ---
History of Present Illness - Stated complaint Stated Complaint: FAILURE TO THRIVE - Chief complaint Chief Complaint: General - History obtained from History obtained from: Patient, Family (her ex emely) - History of Present Illness Timing: Other (This is a 63-year-old woman with history of MS and dementia who lives with her ex- who is her caregiver and her D POA. She is been in palliative care, hospice was discussed at the last visit but the patient did not want to be in hospice and the ex- states that she was cogent during the conversation. Over the last couple of weeks she has had a progressive decline, not eating or drinking and she has multiple bedsores that it started all of a sudden. She is been bedbound for the last 6 months.) Review of Systems Unable to obtain: Confused PD PAST MEDICAL HISTORY - Past Medical History Past Medical History: Yes Neuro: Dementia, Multiple sclerosis Psych: Depression - Past Surgical History Past Surgical History: Yes /IT APPLICATION SUPPORT ANALYST: Dilation and currettage - Present Medications Home Medications: Ambulatory Orders Medication Instructions Recorded Confirmed Buspirone HCl 10 mg PO TID 04/14/17 07/29/18 Quetiapine Fumarate [Seroquel] 100 mg PO BID 04/15/17 07/29/18 diazePAM [Diazepam] 5 - 10 mg PO Q8HR PRN 04/15/17 07/29/18 Trazodone HCl 100 mg PO QPM 09/04/18 09/04/18 - Allergies Allergies/Adverse Reactions: Allergies Allergy/AdvReac Type Severity Reaction Status Date / Time No Known Drug Allergies Allergy Verified 04/15/17 07:46 - Social History Does the pt smoke?: No Smoking Status: Never smoker Does the pt drink ETOH?: No Does the pt have substance abuse?: No - Immunizations Immunizations are current?: No - POLST Patient has POLST: Yes PD ED PE NORMAL - Vitals Vital signs reviewed: Yes - General General: Other (She is somnolent but arousable, follows commands. She appears very dry) - HEENT HEENT: No: Moist mucous membranes - Neck Neck: Supple, no meningeal sign, No bony TTP - Cardiac Cardiac: RRR, No murmur - Respiratory Respiratory: No respiratory distress, Other (Left basilar rhonchi) - Abdomen Abdomen: Non tender - Back Back: No CVA TTP, No spinal TTP - Derm Derm: Other (Multiple pressure sores, most of which are grade 1 including the sacrum, left iliac, left scapula, left axilla. She has a grade 2 over the right ankle.) Results - Vitals Vitals: Vital Signs - 24 hr 09/04/18 17:47 Temperature 36.4 C L Heart Rate 95 Respiratory 16 Rate Blood Pressure 98/69 O2 Saturation 95 Oxygen O2 Source Room air - Labs Labs: Laboratory Tests 09/04/18 09/04/18 09/04/18 18:16 18:16 18:16 WBC 9.9 RBC 4.94 Hgb 14.4 Hct 44.1 MCV 89.4 MCH 29.1 MCHC 32.6 RDW 14.6 Plt Count 245 MPV 7.8 L Neut # (Auto) 7.3 H Lymph # (Auto) 1.8 [place] # (Auto) 0.6 Eos # (Auto) 0.1 Baso # (Auto) 0.1 Absolute Nucleated RBC 0.02 Nucleated RBC % 0.2 PT 11.7 INR 1.0 Sodium 143 Potassium 3.3 L Chloride 101 Carbon Dioxide 31 Anion Gap 11.0 BUN 23 H Creatinine 0.7 Estimated GFR (MDRD) 85 L Glucose 116 H Lactic Acid Calcium 9.3 Total Bilirubin 0.3 AST 20 ALT 18 Alkaline Phosphatase 107 Total Protein 7.5 Albumin 3.2 Globulin 4.3 H Albumin/Globulin Ratio 0.7 L Lipase 23 09/04/18 18:16 WBC RBC Hgb Hct MCV MCH MCHC RDW Plt Count MPV Neut # (Auto) Lymph # (Auto) [place] # (Auto) Eos # (Auto) Baso # (Auto) Absolute Nucleated RBC Nucleated RBC % PT INR Sodium Potassium Chloride Carbon Dioxide Anion Gap BUN Creatinine Estimated GFR (MDRD) Glucose Lactic Acid 1.2 Calcium Total Bilirubin AST ALT Alkaline Phosphatase Total Protein Albumin Globulin Albumin/Globulin Ratio Lipase - Rads (name of study) 1v chest Radiology: EMP read contemporaneously (NAD) PD MEDICAL DECISION MAKING - ED course ED course: This is a 63-year-old woman with dementia and multiple sclerosis who presents with worsening mental status and evidence of dehydration. Per the Ex-/caregiver/D POA she did not want to enter hospice. She has had a progressive failure decline and will need wound care and placement and I spoke with Dr. Escobedo for observation at 7:15 PM. Departure - Departure Disposition: ED Place in Observation Clinical Impression: Multiple sclerosis Dementia Qualifiers: Dementia type: unspecified type Dementia behavioral disturbance: without behavioral disturbance Qualified Code(s): F03.90 - Unspecified dementia without behavioral disturbance Failure to thrive Qualifiers: Failure to thrive age range: in adult Qualified Code(s): R62.7 - Adult failure to thrive Pressure ulcer Qualifiers: Pressure injury location: unspecified location Pressure injury stage: stage 2 Qualified Code(s): L89.92 - Pressure ulcer of unspecified site, stage 2 Condition: Stable
[2018-09-04 18:26] LABS: BASOPHILS # (AUTO) 0.1 10^3/uL (0.0-0.1); BASOPHILS % (AUTO) 0.7 %; EOSINOPHILS # (AUTO) 0.1 10^3/uL (0.0-0.7); EOSINOPHILS % (AUTO) 0.8 %; HGB - HEMOGLOBIN 14.4 g/dL (12.0-16.0); LYMPHOCYTES # (AUTO) 1.8 10^3/uL (1.5-3.5); LYMPHOCYTES % (AUTO) 18.6 %; MEAN CORPUSCULAR HEMOGLOBIN 29.1 pg (27.0-31.0); MEAN CORPUSCULAR HGB CONC 32.6 g/dL (32.0-36.0); MEAN CORPUSCULAR VOLUME 89.4 fL (81.0-99.0); MEAN PLATELET VOLUME 7.8 fL (7.9-10.8); MONOCYTES # (AUTO) 0.6 10^3/uL (0.0-1.0); NEUTROPHILS # (AUTO) 7.3 10^3/uL (1.5-6.6); NEUTROPHILS % (AUTO) 73.9 %; PLT - PLATELET COUNT 245 10^3/uL (130-450); RED BLOOD COUNT 4.94 10^6/uL (4.20-5.40); RED CELL DISTRIBUTION WIDTH 14.6 % (12.0-15.0); WHITE BLOOD COUNT 9.9 x10^3/uL (4.8-10.8)
[2018-09-04 18:28] LABS: PT - PROTHROMBIN TIME 11.7 secs (9.9-12.6)
[2018-09-04 18:36] LABS: ALBUMIN 3.2 g/dL (3.2-5.5); ALBUMIN/GLOBULIN RATIO 0.7 (1.0-2.2); BILIRUBIN,TOTAL 0.3 mg/dL (0.2-1.0); CALCIUM 9.3 mg/dL (8.5-10.3); CREATININE 0.7 mg/dL (0.4-1.0); TOTAL PROTEIN 7.5 g/dL (6.7-8.2)
--- NOTE | 2018-09-04 19:15 | XRAY Report ---
Reason: abn breath sounds, cough Procedure Date: 09/04/2018 Accession Number: [id number] / [id number] Procedure: XR - Chest 1 View X-Ray CPT Code: 84621 FULL RESULT: EXAM: CHEST RADIOGRAPHY EXAM DATE: 09/04/2018 06:41 PM. CLINICAL HISTORY: Abn breath sounds, cough. COMPARISON: None. TECHNIQUE: 1 view. FINDINGS: Lungs/Pleura: No focal opacities evident. No pleural effusion. No pneumothorax. Mediastinum: Within exam limitations, the cardiomediastinal contour is normal. Other: None. IMPRESSION: Normal single view chest. RADIA
[2018-09-04 19:20] LABS: BILIRUBIN,URINE NEGATIVE (NEGATIVE); GLUCOSE, URINE (UA) NEGATIVE (NEGATIVE); KETONES,URINE (UA) TRACE mg/dL (NEGATIVE); LEUKOCYTE ESTERASE, URINE LARGE (NEGATIVE); NITRITE,URINE NEGATIVE (NEGATIVE); OCCULT BLOOD,URINE MODERATE (NEGATIVE); PROTEIN,URINE >=300 mg/dL (NEGATIVE); UROBILINOGEN,URINE 0.2 (NORMAL) E.U./dL (NORMAL)
[2018-09-04 19:22] LABS: CLARITY,URINE TURBID (CLEAR)
[2018-09-04 19:23] LABS: BACTERIA,URINE Many /HPF (None Seen); SQUAMOUS EPITHELIAL CELL,UR NONE SEEN (<= Few); WBC CLUMPS,URINE PRESENT
[2018-09-04] MEDS ORDERED: cefTRIAXone 1 GM in SODIUM CHLORIDE 0.9% MINIBAG 100 ML IV STA (19:45)
[2018-09-04] MEDS ORDERED: SODIUM CHLORIDE FLUSH 0.9% 10 ML SYRINGE IVP PRN (19:46)
[2018-09-04] MEDS ORDERED: ONDANSETRON 4 MG/2 ML VIAL IVP PRN (19:46)
[2018-09-04] MEDS ORDERED: ONDANSETRON ODT 4 MG TABLET TL PRN (19:46)
[2018-09-04] MEDS ORDERED: ACETAMINOPHEN 325 MG TABLET PO PRN (19:46)
[2018-09-04] MEDS ORDERED: DEXTROSE 5%-0.9% NACL 1,000 ML IV SCH (20:00)
[2018-09-04] MEDS: busPIRone 5 MG TABLET PO SCH (21:32)
[2018-09-04] MEDS: FAMOTIDINE 20 MG TABLET PO SCH (21:33)
[2018-09-04] MEDS: traZODone 50 MG TABLET PO SCH (21:33)
[2018-09-04] MEDS: MIRTAZAPINE 15 MG TABLET PO SCH (21:33)
--- NOTE | 2018-09-04 23:18 | HISTORY & PHYSICAL EXAMINATION ---
Chief Complaint - Chief Complaint Chief Complaint: Poor appetite, FTT/Anorexia, weakness and dehydrated History of Present Illness - Admitted From Admitted From:: ED - History Obtained From Records Reviewed: yes History obtained from: DPOA-ex Exam Limitations: Patient demented - History of Present Illness HPI Comment/Other: This is a 63-year-old woman with history of MS and dementia who lives with her ex- who is her caregiver and her DPOA. She is been in palliative care, hospice was discussed at the last visit but the patient did not want to be in hospice and the ex- states that she was cognitive during the conversation. Over the last couple of weeks she has had a progressive decline, not eating or drinking and she has multiple bedsores that it started all of a sudden. She is been bedbound for the last 6 months. On labs patient has a UTI although due to her demented status unable to convey dysuria but grimaces on pelvic palpation, is somewhat contracted, has K 3.3, BMI 20.1 and looks ca chectic and chronically ill-appearing. VSS with bp 98/69 and appears to be dry clinically. She wants to be FULL code per DPOA. History - Past Medical History Cardiovascular: reports: None Respiratory: reports: None Neuro: reports: Dementia, Multiple sclerosis, Other Endocrine/Autoimmune: reports: None GI: reports: Other : reports: Incontinence HEENT: reports: Chronic vision loss Psych: reports: Depression Musculoskeletal: reports: Fatigue, Other Derm: reports: None Other Past Medical History: Vertigo, incontinent, contractures - Past Surgical History /COLOR EXPERT: reports: Dilation and currettage - POLST Patient has POLST: Yes Meds/Allgy - Home Medications Home Medications: Ambulatory Orders Medication Instructions Recorded Confirmed Buspirone HCl 10 mg PO TID 04/14/17 09/04/18 Quetiapine Fumarate [Seroquel] 100 mg PO BID 04/15/17 09/04/18 diazePAM [Diazepam] 5 mg PO Q8HR PRN 04/15/17 09/04/18 Trazodone HCl 100 mg PO QPM 09/04/18 09/04/18 - Allergies Allergies/Adverse Reactions: Allergies Allergy/AdvReac Type Severity Reaction Status Date / Time No Known Drug Allergies Allergy Verified 04/15/17 07:46 Review of Systems - Constitutional Constitutional: reports: Fatigue, Weakness, Poor appetite, Weight loss - Ears, Nose & Throat Ears, Nose & Throat: denies: Tinnitus, Vertigo - Cardiovascular Cariovascular: denies: Palpitations, Chest pain - Respiratory Respiratory: denies: Cough - Musculoskeletal Musculoskeletal: denies: Muscle pain - Neurological Neurological: reports: Memory problems - Psychiatric Psychiatric: reports: Depression - All Other Systems All Other Systems: reports: Reviewed and negative Prior Level of Functionality: Patient bed bound for more than 6 months Exam - Vital Signs Reviewed Vital Signs: Yes Vital Signs: Vital Signs x48h Temp Pulse Pulse Resp BP BP Pulse Ox 09/04/18 20:30 36.8 C 95 22 142/82 H 96 09/04/18 20:15 36.4 C L 92 20 104/66 94 09/04/18 17:47 36.4 C L 95 16 98/69 95 Hypotensive AF, HR 95, 95% RA - Physical Exam General Appearance: positive: Lethargic, Other (Chronically ill-appearing and cachectic) ENT: positive: Dry mucous membranes Neck: positive: Trachea midline. negative: No JVD, Thyromegaly Cardiovascular: positive: Regular rate & rhythm, No murmur, No gallop. n egative: Irregularly irregular Peripheral Pulses: positive: 2+ Abdomen: positive: Tenderness, Other. negative: No organomegaly, No distention, Bruit Extremities: positive: Non-tender, Other. negative: Joint swelling Neurologic/Psychiatric: positive: Disoriented to person, Disoriented to place, Disoriented to time (SP pain on deep palpation) Sepsis Event Note (H) - Evaluation Current Stage of Sepsis: Ruled out Conclusion/Plan - Problem List (1) UTI (urinary tract infection) Conclusion/Plan: Likely from urinary stasuis and being bedbound. IV rocephin to continue. Qualifiers: Urinary tract infection type: site unspecified (2) Failure to thrive Conclusion/Plan: Anorexia seen as well, due to progressive dementia with possible underlying OP- dysphagia, would have ST to eval for OP-dysphagia and food consistency. Would start megace plus remeron as she has hx depression/anxiety Qualifiers: Failure to thrive age range: in adult Qualified Code(s): R62.7 - Adult failure to thrive (3) Protein-calorie malnutrition, moderate Conclusion/Plan: Present on Admission. Moderate to severe protein calorie malnutrition with a BMI 19, weight loss nutritional intae <50% of recommended intake <2weeks, muscle wasting seen on exam with cachexia, and evidence of pressure ulcers, Dietitian consult, improve hydration and nutritional status, megace and remeron initiated. Boost/Ensure cans TID. May need calorie counting. (4) Dementia Conclusion/Plan: Seems progressive and with OP-dysphagia now with nutritional def. Aspiration precautions. ST to eval for food consistencies. Qualifiers: Dementia type: unspecified type Dementia behavioral disturbance: without behavioral disturbance Qualified Code(s): F03.90 - Unspecified dementia without behavioral disturbance (5) Pressure ulcer Conclusion/Plan: Present on admission, multiple sores but there is a noticeable, likely related to poor nutritional status. Stage 2 pressure ulcer to right heel. Air mattress, cushioned heel protectors, frequent turning, optimize nutrition and avoid skin breakdown with emollients or barrier protection creams. Wound care consult. Qualifiers: Pressure injury location: heel Pressure injury stage: stage 2 Laterality: right Qualified Code(s): L89.612 - Pressure ulcer of right heel, stage 2 (6) Multiple sclerosis Conclusion/Plan: Progressive with the need for palliative care services to recommend hospice, however patient is a full code at this point at would be needing this to be re- addressed as the likelihood of complications from MS and progressive dementia are present. (7) Dehydration Conclusion/Plan: Place on IVF's, correct electrolytes, check labs in am (8) Hypokalemia Conclusion/Plan: Sec to nutritional def and poor oral fluid intake. Replace K, check mag and renal panel in am. - Lab Results Lab results reviewed: Yes Fish Bones: 09/05/18 05:08 09/05/18 05:08 - Diagnostic Imaging Results Diagnostic Imaging Results: positive: Final report reviewed - EKG Results EKG Interpreted Independently: No Core Measures - Anticipated LOS I expect patient to be DC'd or transferred within 96 hours.: Yes - Issues Hospital Issues and Management Plan: Palliative care consult needed, Hospice recommended - DVT/VTE - Prophylaxis VTE/DVT Device ordered at admit?: No Not Ordered - Medical Reason: Not indicated VTE/DVT Prophylaxis med ordered at admit?: Yes - Stroke - Rehab Assessment Rehab services assessment to be ordered?: No - AMI - Statin at Admit Aspirin Prescribed on Admit: No Not Ordered - Medical Reason: Not indicated
[2018-09-04] MEDS ORDERED: POTASSIUM CHLOR 20 MEQ/100 ML 20 MEQ/100 ML BAG IV SCH (23:34)
[2018-09-05] MEDS: POTASSIUM CHLOR 10 MEQ/100 ML 10 MEQ/100 ML BAG IV SCH ×2 (01:19→02:21)
[2018-09-05] MEDS: SODIUM CHLORIDE FLUSH 0.9% 10 ML SYRINGE IVP SCH ×3 (02:39→17:35)
[2018-09-05 05:50] LABS: BASOPHILS % (AUTO) 0.7 %; EOSINOPHILS # (AUTO) 0.1 10^3/uL (0.0-0.7); HGB - HEMOGLOBIN 12.3 g/dL (12.0-16.0); LYMPHOCYTES # (AUTO) 1.6 10^3/uL (1.5-3.5); MEAN CORPUSCULAR HEMOGLOBIN 29.5 pg (27.0-31.0); MEAN CORPUSCULAR HGB CONC 32.6 g/dL (32.0-36.0); MEAN CORPUSCULAR VOLUME 90.4 fL (81.0-99.0); MEAN PLATELET VOLUME 7.9 fL (7.9-10.8); MONOCYTES # (AUTO) 0.4 10^3/uL (0.0-1.0); MONOCYTES % (AUTO) 6.6 %; NEUTROPHILS # (AUTO) 3.7 10^3/uL (1.5-6.6); NEUTROPHILS % (AUTO) 63.7 %; PLT - PLATELET COUNT 217 10^3/uL (130-450); RED BLOOD COUNT 4.16 10^6/uL (4.20-5.40); RED CELL DISTRIBUTION WIDTH 14.3 % (12.0-15.0); WHITE BLOOD COUNT 5.9 x10^3/uL (4.8-10.8)
[2018-09-05 05:59] LABS: ALBUMIN 2.6 g/dL (3.2-5.5); CREATININE 0.6 mg/dL (0.4-1.0); PHOSPHORUS 2.2 mg/dL (2.5-4.6)
[2018-09-05] MEDS ORDERED: POTASSIUM CHLORIDE 20 MEQ TABLET PO ONE (06:03)
[2018-09-05] MEDS ORDERED: POTASSIUM PHOSPHATE 21 MMOL in SODIUM CHLORIDE 0.9% 250 ML IV ONE (06:03)
[2018-09-05] MEDS ORDERED: DEXTROSE 5%-LACTATED RINGERS 1,000 ML IV SCH (06:11)
[2018-09-05] MEDS: busPIRone 5 MG TABLET PO SCH ×3 (06:35→22:21)
[2018-09-05] MEDS ORDERED: cefTRIAXone 1 GM VIAL IV SCH (09:00)
[2018-09-05] MEDS: ENOXAPARIN 40 MG/0.4 ML SYRINGE SUBQ SCH (09:12)
[2018-09-05] MEDS: FAMOTIDINE 20 MG TABLET PO SCH ×2 (09:15→20:09)
[2018-09-05] MEDS: MEGESTROL 400 MG/10 ML UDC PO SCH (09:15)
[2018-09-05] MEDS: POLYETHYLENE GLYCOL 3350 17 GM PACKET PO SCH (09:15)
[2018-09-05] MEDS: NS W/20 MEQ KCL 1,000 ML IV SCH ×2 (09:59→17:35)
--- NOTE | 2018-09-05 12:59 | PROVIDER PROGRESS NOTE ---
Subjective - Prog Note Date Prog Note Date: 09/05/18 Prog Note Time: 13:03 - Subjective Pt reports feeling: Improved Subjective: Vanna states that she has a poor appetite, and that her buttocks hurts. She denies chest pain, nausea, vomiting, a rash, dizziness, or a new cough. Current Medications - Current Medications Current Medications: Active Medications: Acetaminophen (Tylenol) 650 mg PO Q4HR PRN Hydrocodone Bitart/Acetaminophen ([place] 5/325) 1 tab PO Q4HR PRN Buspirone HCl (Buspar) 10 mg PO TID [place] Chlorhexidine Gluconate (Peridex) 15 ml PO BID [place] Enoxaparin Sodium (Lovenox) 40 mg SUBQ DAILY [facility] Famotidine (Pepcid) 20 mg PO BID [facility] Ceftriaxone Sodium 1 gm/ (Sodium Chloride) 100 mls @ 200 mls/hr IV Q24H [facility] Potassium Chloride/Sodium Chloride (Normal Saline 0.9% W/20 Meq Kcl) 1,000 mls @ 125 mls/hr IV .Q8H [facility] Megestrol Acetate (Megace) 800 mg PO DAILY [facility] Mineral Oil (Cavilon) 1 applic TOP PRN PRN Mirtazapine (Remeron) 7.5 mg PO QPM [facility] Ondansetron HCl (Zofran Inj) 4 mg IVP Q6HR PRN Ondansetron HCl (Zofran Odt) 4 mg TL Q6HR PRN Polyethylene Glycol (Miralax) 17 gm PO DAILY [facility] Sodium Chloride (Normal Saline Flush 0.9%) 10 ml IVP PRN PRN Sodium Chloride (Normal Saline Flush 0.9%) 10 ml IVP 0100,0900,1700 [place] Trazodone HCl (Desyrel) 100 mg PO QPM [facility] HOME meds: Buspirone HCl 10 mg PO TID 04/14/17 Quetiapine Fumarate [Seroquel] 100 mg PO BID 04/15/17 diazePAM [Diazepam] 5 mg PO Q8HR PRN 04/15/17 Trazodone HCl 100 mg PO QPM 09/04/18 Objective - Vital Signs/Intake & Output Reviewed Vital Signs: Yes Vital Signs: Vital Signs x48h Temp Pulse Resp BP Pulse Ox 09/05/18 07:52 36.4 C L 96 14 92/50 L 96 Intake & Output: Intake & Output 09/02/18 09/03/18 09/04/18 09/05/18 23:59 23:59 23:59 23:59 Intake Total 5736.166 3077.833 Balance 1601.619 9644.833 - Objective General Appearance: positive: No acute distress, Alert Eyes Bilateral: positive: PERRL Eyes: OU Conjunctivae pale ENT: positive: Oral lesions, Dry mucous membranes, Other (tooth malformation) Neck: positive: Thyroid nml, No JVD, Trachea midline Respiratory: positive: Chest non-tender, No respiratory distress, Rhonchi, Other (shallow breathing-chronic) Cardiovascular: positive: Regular rate & rhythm, No gallop, Systolic murmur Peripheral Pulses: 1+ Radial (R), 1+ Radial (L) Abdomen: positive: Nml bowel sounds, No distention, Tenderness, Guarding Back: positive: CVA tenderness (R), CVA tenderness (L) Skin: positive: No rash, Warm, Dry, Pallor Extremities: positive: Non-tender, Full ROM Neurologic/Psychiatric: positive: Disoriented to place, Disoriented to time, Weakness, Sensory loss, Slurred/abnml speech (sluggish speech), Depressed mood/affect, Other (inappropriate comments, out of context.) Reflexes: Bicep (R): 1+, Bicep (L): 1+, Ankle (R): 1+, Ankle (L): 1+ - Lab Results Fish Bones: 09/05/18 05:08 09/05/18 05:08 Other Labs: Lab Results x24hrs 09/05/18 09/05/18 09/04/18 Range/Units 05:08 05:08 18:50 WBC 5.9 (4.8-10.8) x10^3/uL RBC 4.16 L (4.20-5.40) 10^6/uL Hgb 12.3 (12.0-16.0) g/dL Hct 37.6 (37.0-47.0) % MCV 90.4 (81.0-99.0) fL MCH 29.5 (27.0-31.0) pg MCHC 32.6 (32.0-36.0) g/dL RDW 14.3 (12.0-15.0) % Plt Count 217 (130-450) 10^3/uL MPV 7.9 (7.9-10.8) fL Neut # (Auto) 3.7 (1.5-6.6) 10^3/uL Lymph # (Auto) 1.6 (1.5-3.5) 10^3/uL [place] # (Auto) 0.4 (0.0-1.0) 10^3/uL Eos # (Auto) 0.1 (0.0-0.7) 10^3/uL Baso # (Auto) 0.0 (0.0-0.1) 10^3/uL Absolute Nucleated RBC 0.01 x10^3/uL Nucleated RBC % 0.1 /100WBC PT (9.9-12.6) secs INR (0.8-1.2) Sodium 144 (135-145) mmol/L Potassium 3.1 L (3.5-5.0) mmol/L Chloride 110 (101-111) mmol/L Carbon Dioxide 29 (21-32) mmol/L Anion Gap 5.0 L (6-13) BUN 18 (6-20) mg/dL Creatinine 0.6 (0.4-1.0) mg/dL Estimated GFR (MDRD) 101 (>89) Glucose 131 H (70-100) mg/dL Lactic Acid (0.5-2.2) mmol/L Calcium 8.0 L (8.5-10.3) mg/dL Phosphorus 2.2 L (2.5-4.6) mg/dL Magnesium 2.0 (1.7-2.8) mg/dL Total Bilirubin (0.2-1.0) mg/dL AST (10-42) IU/L ALT (10-60) IU/L Alkaline Phosphatase (42-121) IU/L Total Protein (6.7-8.2) g/dL Albumin 2.6 L (3.2-5.5) g/dL Globulin (2.1-4.2) g/dL Albumin/Globulin Ratio (1.0-2.2) Lipase (22-51) U/L TSH (0.34-5.60) uIU/mL Urine Color BROWN Urine Clarity TURBID (CLEAR) Urine pH 7.0 (5.0-7.5) PH Ur Specific [place] >=1.030 H (1.002-1.030) Urine Protein >=300 H (NEGATIVE) mg/dL Urine Glucose (UA) NEGATIVE (NEGATIVE) mg/dL Urine Ketones TRACE (NEGATIVE) mg/dL Urine Occult Blood MODERATE H (NEGATIVE) Urine Nitrite NEGATIVE (NEGATIVE) Urine Bilirubin NEGATIVE (NEGATIVE) Urine Urobilinogen 0.2 (NORMAL) (NORMAL) E.U./dL Ur Leukocyte Esterase LARGE H (NEGATIVE) Urine RBC 11-25 H (0-5) /HPF Urine WBC >25 H (0-5) /HPF Urine WBC Clumps PRESENT Ur Squamous Epith Cells NONE SEEN (<= Few) Urine Bacteria Many H (None Seen) /HPF Ur Microscopic Review INDICATED Urine Culture Comments INDICATED 09/04/18 09/04/18 09/04/18 Range/Units 18:16 18:16 18:16 WBC (4.8-10.8) x10^3/uL RBC (4.20-5.40) 10^6/uL Hgb (12.0-16.0) g/dL Hct (37.0-47.0) % MCV (81.0-99.0) fL MCH (27.0-31.0) pg MCHC (32.0-36.0) g/dL RDW (12.0-15.0) % Plt Count (130-450) 10^3/uL MPV (7.9-10.8) fL Neut # (Auto) (1.5-6.6) 10^3/uL Lymph # (Auto) (1.5-3.5) 10^3/uL [place] # (Auto) (0.0-1.0) 10^3/uL Eos # (Auto) (0.0-0.7) 10^3/uL Baso # (Auto) (0.0-0.1) 10^3/uL Absolute Nucleated RBC x10^3/uL Nucleated RBC % /100WBC PT (9.9-12.6) secs INR (0.8-1.2) Sodium 143 (135-145) mmol/L Potassium 3.3 L (3.5-5.0) mmol/L Chloride 101 (101-111) mmol/L Carbon Dioxide 31 (21-32) mmol/L Anion Gap 11.0 (6-13) BUN 23 H (6-20) mg/dL Creatinine 0.7 (0.4-1.0) mg/dL Estimated GFR (MDRD) 85 L (>89) Glucose 116 H (70-100) mg/dL Lactic Acid 1.2 (0.5-2.2) mmol/L Calcium 9.3 (8.5-10.3) mg/dL Phosphorus (2.5-4.6) mg/dL Magnesium (1.7-2.8) mg/dL Total Bilirubin 0.3 (0.2-1.0) mg/dL AST 20 (10-42) IU/L ALT 18 (10-60) IU/L Alkaline Phosphatase 107 (42-121) IU/L Total Protein 7.5 (6.7-8.2) g/dL Albumin 3.2 (3.2-5.5) g/dL Globulin 4.3 H (2.1-4.2) g/dL Albumin/Globulin Ratio 0.7 L (1.0-2.2) Lipase 23 (22-51) U/L TSH 0.84 (0.34-5.60) uIU/mL Urine Color Urine Clarity (CLEAR) Urine pH (5.0-7.5) PH Ur Specific [place] (1.002-1.030) Urine Protein (NEGATIVE) mg/dL Urine Glucose (UA) (NEGATIVE) mg/dL Urine Ketones (NEGATIVE) mg/dL Urine Occult Blood (NEGATIVE) Urine Nitrite (NEGATIVE) Urine Bilirubin (NEGATIVE) Urine Urobilinogen (NORMAL) E.U./dL Ur Leukocyte Esterase (NEGATIVE) Urine RBC (0-5) /HPF Urine WBC (0-5) /HPF Urine WBC Clumps Ur Squamous Epith Cells (<= Few) Urine Bacteria (None Seen) /HPF Ur Microscopic Review Urine Culture Comments 09/04/18 09/04/18 Range/Units 18:16 18:16 WBC 9.9 (4.8-10.8) x10^3/uL RBC 4.94 (4.20-5.40) 10^6/uL Hgb 14.4 (12.0-16.0) g/dL Hct 44.1 (37.0-47.0) % MCV 89.4 (81.0-99.0) fL MCH 29.1 (27.0-31.0) pg MCHC 32.6 (32.0-36.0) g/dL RDW 14.6 (12.0-15.0) % Plt Count 245 (130-450) 10^3/uL MPV 7.8 L (7.9-10.8) fL Neut # (Auto) 7.3 H (1.5-6.6) 10^3/uL Lymph # (Auto) 1.8 (1.5-3.5) 10^3/uL [place] # (Auto) 0.6 (0.0-1.0) 10^3/uL Eos # (Auto) 0.1 (0.0-0.7) 10^3/uL Baso # (Auto) 0.1 (0.0-0.1) 10^3/uL Absolute Nucleated RBC 0.02 x10^3/uL Nucleated RBC % 0.2 /100WBC PT 11.7 (9.9-12.6) secs INR 1.0 (0.8-1.2) Sodium (135-145) mmol/L Potassium (3.5-5.0) mmol/L Chloride (101-111) mmol/L Carbon Dioxide (21-32) mmol/L Anion Gap (6-13) BUN (6-20) mg/dL Creatinine (0.4-1.0) mg/dL Estimated GFR (MDRD) (>89) Glucose (70-100) mg/dL Lactic Acid (0.5-2.2) mmol/L Calcium (8.5-10.3) mg/dL Phosphorus (2.5-4.6) mg/dL Magnesium (1.7-2.8) mg/dL Total Bilirubin (0.2-1.0) mg/dL AST (10-42) IU/L ALT (10-60) IU/L Alkaline Phosphatase (42-121) IU/L Total Protein (6.7-8.2) g/dL Albumin (3.2-5.5) g/dL Globulin (2.1-4.2) g/dL Albumin/Globulin Ratio (1.0-2.2) Lipase (22-51) U/L TSH (0.34-5.60) uIU/mL Urine Color Urine Clarity (CLEAR) Urine pH (5.0-7.5) PH Ur Specific [place] (1.002-1.030) Urine Protein (NEGATIVE) mg/dL Urine Glucose (UA) (NEGATIVE) mg/dL Urine Ketones (NEGATIVE) mg/dL Urine Occult Blood (NEGATIVE) Urine Nitrite (NEGATIVE) Urine Bilirubin (NEGATIVE) Urine Urobilinogen (NORMAL) E.U./dL Ur Leukocyte Esterase (NEGATIVE) Urine RBC (0-5) /HPF Urine WBC (0-5) /HPF Urine WBC Clumps Ur Squamous Epith Cells (<= Few) Urine Bacteria (None Seen) /HPF Ur Microscopic Review Urine Culture Comments ABX Reporting Has patient been on IV antibiotics over the past 48 hours?: Yes Sepsis Event Note (H) - Evaluation Current Stage of Sepsis: Sepsis Possible source of Sepsis: positive: Genitourinary - Sepsis Criteria Sepsis Criteria: Recorded Heart Rate greater than 90 bpm, ASBESTOS WORKER: altered consciousness (unrelated to primary neuro pathology), Renal: urine output less than 0.5ml/kg/hr for 2 hours or creatinine gr Assessment/Plan - Problem List (1) Complicated UTI (urinary tract infection) Impression: Preliminary urine cultures results show e. coli with final sensitivities to follow. She has been treated with IV Rocephin that continues today. She is a bit hypotensive and has bilateral flank pain with tenderness in her low abdomen on exam. She has chronic urinary incontinence and her urine appears ami. She does not have a chronic indwelling murray as expected with patient's who have MS. Plan: Await kidney US, bladder scan, continue IV treatment, await final cultures, and continue Pure Wick. (2) Hypokalemia Impression: The patient presented with a low K+ of 3.3, that became worse after supplement and this morning is 3.1. She has been given IV replacement and her maintenance fluids are now changed to NS with 20Meq at 125 mL. Her oral intake remains poor, and she admits to recent diarrhea, although is a poor historian. Plan: Daily labs, continue IV fluids, replace as needed. Monitor for diarrhea or other causes. (3) Multiple sclerosis Impression: She was diagnosed originally in 2001 with her MS, with symptoms related to visual changes, and lower extremity weakness. She was originally able to ambulate a few steps, toilet, but has had ongoing decline to pivot transfers, now to bed bound status. She has had upper and lower extremity muscle wasting, does have some spasticity, intermittent discomfort. She takes trazadone, seroquel and valium at home for insomnia, agitation, and muscle spasticity. She does not have a chronic murray, but has a history of both urinary and bowel incontinence. I suspect that she has a neurogenic bladder and retains urine, so routine bladder scans have ordered. She cannot elaborate on her own medical conditions on exam today, likely a consequence of her acute illness. Plan: Continue bed rest with every 2 hours turns. Wound care consult for bed sores including stage 1 coccyx and profound heel ulcers. (4) Protein-calorie malnutrition, moderate Impression: The patient has a low BMI of 19, and is 47 kg. She has been bed bound for greater than 6 months and is seen by Palliative care out patient. She is cared for by her care-givers and ex-. Her POA is her daughter Dilia. She continued to have a poor appetite and today denies nausea or vomiting, although is a poor historian. Plan: Continue to encourage meals, dietary consult and await swallowing evaluation. (5) Urinary incontinence Impression: The patient admits to chronic urinary incontinence and recurrent UTIs, and upon review of the chart this is accurate. She has an acute complicated UTI and being treated with IV Rocephin. A pure wick is in place, but I suspect urine retention, so bladders scans are ordered. Plan: Continue pure wick, monitor for retention. (6) Bowel incontinence Impression: The patient has this as a consequence to her MS. She is no longer ambulatory. She has care givers. On exam, the patient admits to recent diarrhea at home which could have led to her acute complicated UTI. Plan: Continue to monitor. (7) Dementia Impression: The patient has this and her POA is her daughter, Dilia. She appears to be a very poor historian on exam and says statements such as, "I am not allowed to say, or I probably should not have told you that". She is a poor historian. Plan: Continue to treat this acute illness, monitor for worsening mentation. Qualifiers: Dementia type: unspecified type Dementia behavioral disturbance: without behavioral disturbance Qualified Code(s): F03.90 - Unspecified dementia without behavioral disturbance (8) Pressure ulcer of coccygeal region, stage 1 Impression: As per chart review, see notes section for pictures, the patient has an intact pressure sore to her mid-coccyx and complains of buttock pain on exam from chronic bed rest. Plan: Await wound consult, frequent turns. (9) Pressure injury of right heel, stage 2 Impression: The patient is bedbound at home and is cared for by care givers and her ex- . See chart for pictures. Plan: Await wound consult, float heels, frequent turns.
[2018-09-05] MEDS: CHLORHEXIDINE GLUCONATE 15 ML UDC PO SCH ×2 (14:28→20:09)
[2018-09-05] MEDS: HYDROcod/ACETAM 5/325 MG TABLET PO PRN (17:12)
[2018-09-05] MEDS ORDERED: DIAZEPAM 5 MG PO PRN (17:48)
[2018-09-05] MEDS ORDERED: diazePAM 5 MG TABLET PO PRN (18:30)
--- NOTE | 2018-09-05 19:41 | Ultrasound Report ---
Reason: complicated UTI/MS/evaluate for pyelo Procedure Date: 09/05/2018 Accession Number: [id number] / [id number] Procedure: US - Retroperitoneal CPT Code: FULL RESULT: EXAM: RENAL ULTRASOUND EXAM DATE: 09/05/2018 06:37 PM. CLINICAL HISTORY: Complicated UTI. MS. Evaluate for pyelo. COMPARISON: None. TECHNIQUE: Real-time scanning was performed with static images obtained. FINDINGS: Right Kidney: 9.3 x 4.5 x 4.2 cm. Normal echotexture with no stones, contour-deforming masses, or hydronephrosis. Left Kidney: 9.0 x 4.1 x 5.0 cm. Normal echotexture with no stones, contour-deforming masses, or hydronephrosis. Bladder: No ureteral jets seen. The prevoid bladder volume was 16.5 cc. Other: None. IMPRESSION: 1. Unremarkable renal ultrasound. 2. Fairly empty bladder with no ureteral jets seen. RADIA
[2018-09-05] MEDS: traZODone 50 MG TABLET PO SCH (20:08)
[2018-09-05] MEDS: MIRTAZAPINE 15 MG TABLET PO SCH (20:09)
[2018-09-05] MEDS: cefTRIAXone 1 GM in SODIUM CHLORIDE 0.9% MINIBAG 100 ML IV SCH (20:16)
[2018-09-05] MEDS: QUEtiapine 100 MG TABLET PO SCH (20:18)
[2018-09-05] MEDS ORDERED: QUETIAPINE FUMARATE 100 MG PO SCH (21:00)
[2018-09-06] MEDS: NS W/20 MEQ KCL 1,000 ML IV SCH (01:36)
[2018-09-06] MEDS: MIN OIL/DIMETHICON/COCONUT OIL 92 GM TUBE TOP PRN ×2 (02:10→05:28)
[2018-09-06] MEDS: SODIUM CHLORIDE FLUSH 0.9% 10 ML SYRINGE IVP SCH ×4 (02:19→23:39)
[2018-09-06 05:26] LABS: BASOPHILS % (AUTO) 0.8 %; EOSINOPHILS # (AUTO) 0.1 10^3/uL (0.0-0.7); EOSINOPHILS % (AUTO) 2.1 %; HGB - HEMOGLOBIN 11.3 g/dL (12.0-16.0); LYMPHOCYTES # (AUTO) 1.5 10^3/uL (1.5-3.5); LYMPHOCYTES % (AUTO) 24.3 %; MEAN CORPUSCULAR HEMOGLOBIN 29.1 pg (27.0-31.0); MEAN CORPUSCULAR VOLUME 91.2 fL (81.0-99.0); MEAN PLATELET VOLUME 7.3 fL (7.9-10.8); MONOCYTES # (AUTO) 0.3 10^3/uL (0.0-1.0); MONOCYTES % (AUTO) 5.5 %; NEUTROPHILS % (AUTO) 67.3 %; PLT - PLATELET COUNT 206 10^3/uL (130-450); RED BLOOD COUNT 3.89 10^6/uL (4.20-5.40); RED CELL DISTRIBUTION WIDTH 15.2 % (12.0-15.0)
[2018-09-06] MEDS: busPIRone 5 MG TABLET PO SCH ×3 (05:28→21:20)
[2018-09-06 05:37] LABS: ALBUMIN 2.4 g/dL (3.2-5.5); ALBUMIN/GLOBULIN RATIO 0.8 (1.0-2.2); BILIRUBIN,TOTAL 0.2 mg/dL (0.2-1.0); CREATININE 0.6 mg/dL (0.4-1.0); MAGNESIUM 1.5 mg/dL (1.7-2.8); PHOSPHORUS 1.7 mg/dL (2.5-4.6); TOTAL PROTEIN 5.3 g/dL (6.7-8.2)
[2018-09-06] MEDS ORDERED: NEUTRA-PHOS 250 MG TABLET PO ONE (07:45)
[2018-09-06] MEDS ORDERED: MAGNESIUM SULFATE 2 GRAM 2 GM/50 ML BAG IV ONE (08:00)
[2018-09-06] MEDS: CHLORHEXIDINE GLUCONATE 15 ML UDC PO SCH ×2 (09:30→20:08)
[2018-09-06] MEDS: ENOXAPARIN 40 MG/0.4 ML SYRINGE SUBQ SCH (09:30)
[2018-09-06] MEDS: MEGESTROL 400 MG/10 ML UDC PO SCH (09:31)
[2018-09-06] MEDS: QUEtiapine 100 MG TABLET PO SCH ×2 (09:31→20:07)
[2018-09-06] MEDS: POLYETHYLENE GLYCOL 3350 17 GM PACKET PO SCH (09:31)
[2018-09-06] MEDS: FAMOTIDINE 20 MG TABLET PO SCH ×2 (09:31→20:08)
[2018-09-06] MEDS: HYDROcod/ACETAM 5/325 MG TABLET PO PRN (09:32)
--- NOTE | 2018-09-06 15:25 | PROVIDER PROGRESS NOTE ---
Objective - Vital Signs/Intake & Output Vital Signs: Vital Signs x48h Temp Pulse Pulse Resp BP Pulse Ox 09/06/18 13:19 36.1 C L 105 H 18 96 09/06/18 07:36 36.1 C L 102 H 18 110/80 99 Intake & Output: Intake & Output 09/03/18 09/04/18 09/05/18 09/06/18 23:59 23:59 23:59 23:59 Intake Total 8199.875 1673.833 2660 Output Total 130 550 Balance 5234.061 2359.833 2110 - Lab Results Fish Bones: 09/06/18 05:13 09/06/18 05:13 Other Labs: Lab Results x24hrs 09/06/18 09/06/18 09/06/18 Range/Units 05:13 05:13 05:13 WBC 6.0 (4.8-10.8) x10^3/uL RBC 3.89 L (4.20-5.40) 10^6/uL Hgb 11.3 L (12.0-16.0) g/dL Hct 35.5 L (37.0-47.0) % MCV 91.2 (81.0-99.0) fL MCH 29.1 (27.0-31.0) pg MCHC 32.0 (32.0-36.0) g/dL RDW 15.2 H (12.0-15.0) % Plt Count 206 (130-450) 10^3/uL MPV 7.3 L (7.9-10.8) fL Neut # (Auto) 4.0 (1.5-6.6) 10^3/uL Lymph # (Auto) 1.5 (1.5-3.5) 10^3/uL [place] # (Auto) 0.3 (0.0-1.0) 10^3/uL Eos # (Auto) 0.1 (0.0-0.7) 10^3/uL Baso # (Auto) 0.0 (0.0-0.1) 10^3/uL Absolute Nucleated RBC 0.00 x10^3/uL Nucleated RBC % 0.0 /100WBC Sodium 145 (135-145) mmol/L Potassium 4.0 (3.5-5.0) mmol/L Chloride 114 H (101-111) mmol/L Carbon Dioxide 26 (21-32) mmol/L Anion Gap 5.0 L (6-13) BUN 8 (6-20) mg/dL Creatinine 0.6 (0.4-1.0) mg/dL Estimated GFR (MDRD) 101 (>89) Glucose 94 (70-100) mg/dL Lactic Acid 0.9 (0.5-2.2) mmol/L Calcium 8.0 L (8.5-10.3) mg/dL Phosphorus 1.7 L (2.5-4.6) mg/dL Magnesium 1.5 L (1.7-2.8) mg/dL Total Bilirubin 0.2 (0.2-1.0) mg/dL AST 15 (10-42) IU/L ALT 13 (10-60) IU/L Alkaline Phosphatase 75 (42-121) IU/L Total Protein 5.3 L (6.7-8.2) g/dL Albumin 2.4 L (3.2-5.5) g/dL Globulin 2.9 (2.1-4.2) g/dL Albumin/Globulin Ratio 0.8 L (1.0-2.2) Sepsis Event Note (H) - Evaluation Current Stage of Sepsis: Sepsis Possible source of Sepsis: positive: Genitourinary - Sepsis Criteria Sepsis Criteria: Recorded Heart Rate greater than 90 bpm, TOP TILE DECORATOR: altered consciousness (unrelated to primary neuro pathology), Renal: urine output less than 0.5ml/kg/hr for 2 hours or creatinine gr Assessment/Plan - Problem List (1) UTI (urinary tract infection) Impression: (1) UTI (urinary tract infection) continue antibiotics, UA reveals positive for Ecoli and sensitivity to Rocephin (2)tachycardia pt present HR over 100 order EKG, followup on tele and vital monitor (3) hypomagnesemia Mag 1.5 today,it may be caused by malnutrition replacement, lab monitor, (4) hypophosphatemia phosphor 1.7 today, it may be caused by malnutrition replacement, lab monitor (5) Failure to thrive Conclusion/Plan: continue megace plus remeron as she has hx depression/anxiety (6) Protein-calorie malnutrition, moderate Conclusion/Plan: continue media planner / buyer and supervisor dyer consult, continue megace and remeron initiated. Boost/Ensure cans TID. (7) Dementia continue support, palliative and hospice referral ST to eval for food consistencies. (8) Pressure ulcer Conclusion/Plan: pt's skin is still intact, Wound care consult, will followup continue nurse care, turn over Q2H (9) Multiple sclerosis Conclusion/Plan: advanced disease status. support pt, consult with palliative care, and refer to hospice care (10) Dehydration Conclusion/Plan: it seems resolved, will keep pt hydration will correct electrolytes, check labs in am (11) Hypokalemia resolved Qualifiers: Urinary tract infection type: site unspecified
[2018-09-06] MEDS ORDERED: SODIUM CHLORIDE 0.9% 1,000 ML IV SCH (16:00)
[2018-09-06] MEDS: SODIUM CHLORIDE 0.9% 1,000 ML IV SCH (16:38)
--- NOTE | 2018-09-06 18:57 | CONSULTATION NOTE ---
Palliative Care Follow Up - Referral Referring Provider: Bang Escobedo MD Time of Visit: [id number];1-1:45;3:30-3:45 Referral setting: Hospitalized patient Referral Reason: MS/dementia/UTI/DTI right heel - Information Sources Records reviewed: RN notes reviewed, Previous records reviewed History/Review of Systems obtained from: Family (met with Uche) Exam limitations: Clinical condition (patient with advanced dementia; unable to answer questions other than yes/no) - History of Present Illness Update Brief HPI Update: This is a 63-year-old woman with progressive MS who I am well familiar with from the outpatient setting. I had seen her on 07/29/18 with a recommendation secondary to weight loss, increasing dysphagia, upper and lower extremity muscle wasting, and high risk for aspiration to transition to hospice.She is cared for by her ex- Uche Calderon who provides most of the oversight and address his care needs. Her daughter though Dilia Calderon is actually the D POA. In the context of this conversation of transitioning to hospice there was multiple exchanges and conversations triggered by Vanna's significant fear of dying. They had declined hospice, in fact and wanted to redo her DEEPTI ST, as they felt obligated amend this given conversations with the patient despite her dementia and lack of medical decision making capacity. We had scheduled a visit after the holidays per their request, to further explore this further as well as to evaluate her decline. Unfortunately patient has acutely declined over the last 7-10 days, now presenting with a UTI, and what was quite traumatic for her caregiver which was skin breakdown and minimal oral intake. Today I find her somewhat conversational, though this is nonsensical. She is able to answer yes/no questions, but is unable to identify where she is, understand what is happening to her, are be able to participate in decision- making. In review with Uche her caregiver, he does understand now the context of concern of both staff and myself, regarding her DNA R/DNI status. He acknowledges he did not understand the concept of intubation, and feels she would never want something this aggressive, and does recognize at this point in time with her decline a comfort focused approach makes sense as well as antibiotics is acceptable. My visit was piggybacked onto speech therapy, which did indeed confirm progressive dysphagia, this is related to her progressive dementia, and though patient can improve her caloric and fluid intake, we would expect ongoing decline.Patient does have a DTI on her right heel, her other pressure areas have improved, she does present with increased contractures since I have seen her last, and actually finally did witness some of her agonal/contorting behaviors that can escalate and often only respond to diazepam. Patient denies pain when asked regarding this, but does appear significantly distressed to though can be redirected or distracted. Patient continues with poor dentition, increased swelling in her gums, and white coating on her tongue. Social History - Living Situation Living arrangement: At home Living Situation: With family Support System: Patient does have 6 children, she is estranged from 2 of them, she has had one child passed. She does see the others from time to time. She has been cared for by her ex- Uche for greater than 5 years, he is paid as her ISAIAS worker. Her daughter Dilia Calderon has both financial medical DURABLE POWER OF MATCH UP PERSON though Uche makes day-to-day decisions regarding her care. Previously several months ago patient had been attempted to be placed, this was quite difficult as she has Medicaid, and has a history of behavioral issues. Current patient is much easier to manage, and will be discharged on hospice. Medications/Allergies - Medications Active Medication List: Active Medications Acetaminophen (Tylenol) 650 mg PO Q4HR PRN PRN Reason: Pain 1 to 4 Last Admin: 09/06/18 17:24 Dose: 650 mg Hydrocodone Bitart/Acetaminophen ([facility] 5/325) 1 tab PO Q4HR PRN PRN Reason: Pain 5 to 7 Last Admin: 09/06/18 09:32 Dose: 1 tab Buspirone HCl (Buspar) 10 mg PO TID [facility] Last Admin: 09/06/18 14:08 Dose: 10 mg Chlorhexidine Gluconate (Peridex) 15 ml PO BID [facility] Last Admin: 09/06/18 09:30 Dose: 15 ml Diazepam (Valium) 5 mg PO Q6H PRN PRN Reason: Anxiety Enoxaparin Sodium (Lovenox) 40 mg SUBQ DAILY [facility] Last Admin: 09/06/18 09:30 Dose: 40 mg Famotidine (Pepcid) 20 mg PO BID [facility] Last Admin: 09/06/18 09:31 Dose: 20 mg Ceftriaxone Sodium 1 gm/ (Sodium Chloride) 100 mls @ 200 mls/hr IV Q24H [facility] Last Infusion: 09/05/18 20:46 Dose: Infused Sodium Chloride (Normal Saline 0.9%) 1,000 mls @ 83.3 mls/hr IV .Q12H1M [facility] Last Admin: 09/06/18 16:38 Dose: 83.3 mls/hr Megestrol Acetate (Megace) 800 mg PO DAILY [facility] Last Admin: 09/06/18 09:31 Dose: 800 mg Mineral Oil (Cavilon) 1 applic TOP PRN PRN PRN Reason: Skin Care Last Admin: 09/06/18 05:28 Dose: 1 applic Mirtazapine (Remeron) 7.5 mg PO QPM [facility] Last Admin: 09/05/18 20:09 Dose: 7.5 mg Ondansetron HCl (Zofran Inj) 4 mg IVP Q6HR PRN PRN Reason: Nausea / Vomiting Ondansetron HCl (Zofran Odt) 4 mg TL Q6HR PRN PRN Reason: Nausea / Vomiting Polyethylene Glycol (Miralax) 17 gm PO DAILY [facility] Last Admin: 09/06/18 09:31 Dose: 17 gm Quetiapine Fumarate (Seroquel) 50 mg PO BID [facility] Last Admin: 09/06/18 09:31 Dose: 50 mg Sodium Chloride (Normal Saline Flush 0.9%) 10 ml IVP PRN PRN PRN Reason: NEEDED PER PROVIDER ORDERS Sodium Chloride (Normal Saline Flush 0.9%) 10 ml IVP 0100,0900,1700 [facility] Last Admin: 09/06/18 16:38 Dose: Not Given Trazodone HCl (Desyrel) 100 mg PO QPM [facility] Last Admin: 09/05/18 20:08 Dose: 100 mg Buspirone HCl 10 mg PO TID 04/14/17 Quetiapine Fumarate [Seroquel] 100 mg PO BID 04/15/17 diazePAM [Diazepam] 5 mg PO Q8HR PRN 04/15/17 Trazodone HCl 100 mg PO QPM 09/04/18 - Allergies Allergies/Adverse Reactions: Allergies Allergy/AdvReac Type Severity Reaction Status Date / Time No Known Drug Allergies Allergy Verified 04/15/17 07:46 Review of Systems - Constitutional Constitutional: reports: Fatigue, Weight loss (upper and lower extremity wasting) - Eyes Eyes: reports: Vision loss - Ears, Nose & Throat Ears, Nose & Throat: reports: Dental decay, Other (tongue with white coating) - Gastrointestinal Gastrointestinal: reports: Constipation (history of constipation), Other (increase difficulty with intake and eating about 2 weeks; previously modified diet) - Genitourinary Genitourinary: reports: Incontinence (has female suction catheter; may want to consider murray placement for caregiving ease) - Musculoskeletal Musculoskeletal: reports: Stiffness, Muscle weakness, Other (bedbound) - Integumentary Integumentary: reports: Dryness, Other (recent development of pressure areas/ DTI right heel) - Neurological Neurological: reports: General weakness, Memory problems, Slurred speech - Psychiatric Psychiatric: reports: Anxiety, Delusions, Hallucinations - Endocrine Endocrine: reports: Intolerance to heat (patient often likes it cool; has fan on at home) - Hematologic/Lymphatic Hematologic/Lymphatic: denies: Recurrent infections (patient has not had any infections for almost 2 years) - All Other Systems All Other Systems: reports: Other (limited ROS) Physical Exam - Vital Signs Vital Signs: Vital Signs x48h Temp Pulse Pulse Resp BP Pulse Ox 09/06/18 16:00 37.4 C 107 H 18 128/68 95 09/06/18 13:19 36.1 C L 105 H 18 96 - Physical Exam General Appearance: positive: Mild distress, Anxious, Lethargic Eyes Bilateral: positive: Normal inspection ENT: positive: Other (gums with swelling; broken teeth) Neck: positive: No JVD, Trachea midline Cardiovascular: positive: Regular rate & rhythm Respiratory: positive: No respiratory distress, Breath sounds nml, Diminished in bases Abdomen: positive: Non-tender, Soft Skin: positive: Dryness, Pressure wound (1.5 x 2.0 calloused area with blackened center; no redness or erythema surrounding) Extremities: positive: No pedal edema Neurologic/Psychiatric: positive: Disoriented to person, Disoriented to place, Disoriented to time, Weakness, Slurred/abnml speech, Flat affect Palliative Care - POLST Patient has POLST: Yes POLST Status: DNR, Comfort Measures (Reverted to old POLST; comfort measures/DNAR; no medical nutrition; and determine the use of antibiotics with comfort as the goal) Pain: Pain improved, Location (appears to have discomfort with repositioning; unclear if startled or painful) Drowsiness/Sedation: None Anxiety: Moderate (4-6) Constipation: Yes, Unmanaged Performance Status: Patient has been bedbound long-term, has had decline in function over the last couple years, is unable to participate in turning or repositioning herself at this point in time and is dependent for feeding. - Palliative Care Discussion: Long discussion with caregiver and ex- Uche Calderon. Does understand the severity of her illness, was fairly traumatized by her rapid changes in skin breakdown. Worried about able to meet her care needs, concerned about her "flush rotting off". Reassured given the attention and focus on her care and care needs with the hospice team, can prevent further trauma as well as address appropriately. Patient does have poor nutritional status, and though this adds to risk for further skin breakdown, there is still mattresses/positioning and ways to address this. Reviewed goals of care, is conflicted as far as knowing Vanna would do better at home, but concerned about being able to meet her care needs, plus possibly placing her here from the hospital. We did discuss in the context of hospice, there is social work professor, and if unable to meet care needs even with support of hospice, they can assist with placement. Anticipatory guidance was given with patient to have expected ongoing decline, currently has been "perked up" with antibiotics, fluids, and nursing care. At the end of the conversation, decision was made to discharge with hospice care on Thursday with available opening. 1545: Did speak with Dilia Calderon cell number [phone] and work [phone]. Father and she had spoken, regarding updates and concerns. She is in agreement to revert back to previous DEEPTI ST which she had signed on October of 2015, With DNA R and comfort measures, no medical new nutrition as well as determine the use or limitation of antibiotics with the goal for comfort. At this point in time do want her treated for her UTI, in agreement for transition to hospice. Dilia has had experience with working with hospice before, and does understand the intent is for comfort and to allow natural at home. She is available by phone and is planning to come up on Thursday so would be available to sign paperwork for hospice. Questions were answered and concerns addressed, is aware of mother's decline and expressing appropriate sadness and grief Results - Lab Results Lab results reviewed: Yes Fish Bones: 09/06/18 05:13 09/06/18 05:13 Lab and Imaging Results: Lab Results x24hrs 09/06/18 09/06/18 09/06/18 Range/Units 05:13 05:13 05:13 WBC 6.0 (4.8-10.8) x10^3/uL RBC 3.89 L (4.20-5.40) 10^6/uL Hgb 11.3 L (12.0-16.0) g/dL Hct 35.5 L (37.0-47.0) % MCV 91.2 (81.0-99.0) fL MCH 29.1 (27.0-31.0) pg MCHC 32.0 (32.0-36.0) g/dL RDW 15.2 H (12.0-15.0) % Plt Count 206 (130-450) 10^3/uL MPV 7.3 L (7.9-10.8) fL Neut # (Auto) 4.0 (1.5-6.6) 10^3/uL Lymph # (Auto) 1.5 (1.5-3.5) 10^3/uL Quay # (Auto) 0.3 (0.0-1.0) 10^3/uL Eos # (Auto) 0.1 (0.0-0.7) 10^3/uL Baso # (Auto) 0.0 (0.0-0.1) 10^3/uL Absolute Nucleated RBC 0.00 x10^3/uL Nucleated RBC % 0.0 /100WBC Sodium 145 (135-145) mmol/L Potassium 4.0 (3.5-5.0) mmol/L Chloride 114 H (101-111) mmol/L Carbon Dioxide 26 (21-32) mmol/L Anion Gap 5.0 L (6-13) BUN 8 (6-20) mg/dL Creatinine 0.6 (0.4-1.0) mg/dL Estimated GFR (MDRD) 101 (>89) Glucose 94 (70-100) mg/dL Lactic Acid 0.9 (0.5-2.2) mmol/L Calcium 8.0 L (8.5-10.3) mg/dL Phosphorus 1.7 L (2.5-4.6) mg/dL Magnesium 1.5 L (1.7-2.8) mg/dL Total Bilirubin 0.2 (0.2-1.0) mg/dL AST 15 (10-42) IU/L ALT 13 (10-60) IU/L Alkaline Phosphatase 75 (42-121) IU/L Total Protein 5.3 L (6.7-8.2) g/dL Albumin 2.4 L (3.2-5.5) g/dL Globulin 2.9 (2.1-4.2) g/dL Albumin/Globulin Ratio 0.8 L (1.0-2.2) Impression and Recommendations - Palliative Care Impression: This is a 63-year-old woman with advanced dementia and progressive MS, presents with acute UTI, with DTI right heel, progressive dysphagia, malnutrition and failure to thrive. Palliative care to meet with family regarding goals of care, decision made to transition to hospice on discharge. Recommendations/Counseling Done: 1. DTI right heel. Patient currently has a hospital bed from [facility], will follow up with hospice regarding pressure relief mattress/APAP and transition to [facility]. Recommend when Uche present, for nursing to continue provide to instruction Regarding positioning and offloading pressure points. May want to consider Murray catheter placement in the context of using caregiver burden. 2. Dementia with behavioral disturbances. Patient has done well on her current regimen, when patient does get contorted, or escalating, redirection to be used first, then follow-up as patient has been responsive to Valium for assisting in distress. Patient has been on it long-term, has received it 2-3 times a day intermittently, would recommend at least giving daily as to not precipitate chas zodiazepine withdrawal. 3. Advanced MS. Patient with noted contractures, increasing dysphagia, has been seen by Speech Therapy. Instructions have been given to caregiver, can be further monitored and evaluated on transition home with hospice. 4. Advanced care planning. Counseling provided regarding goals of care, weighing benefits and burdens of home versus placement, as well as education on hospice benefit. Spoke with both caregiver X has been gym and D POA daughter Diila, agreement to move forward with hospice referral on discharge, would like to go ahead and treat UTI, focus on comfort and quality of life issues. Both recognize patient's decline, and need for increased support in the home setting. Communication update given to marketing communications manager and hospice medical record technician, as well as decision to hospitalist and APPLICATIONS PACKAGER Time Spent: 75 minutes with greater than 50% of this done in counseling regarding goals of care, symptom management, anticipatory guidance regarding hospice and coordination of care with team members
[2018-09-06] MEDS: cefTRIAXone 1 GM in SODIUM CHLORIDE 0.9% MINIBAG 100 ML IV SCH (19:51)
[2018-09-06] MEDS: MIRTAZAPINE 15 MG TABLET PO SCH (20:07)
[2018-09-06] MEDS: traZODone 50 MG TABLET PO SCH (20:08)
[2018-09-07] MEDS: SODIUM CHLORIDE 0.9% 1,000 ML IV SCH (05:00)
[2018-09-07 05:38] LABS: MAGNESIUM 2.1 mg/dL (1.7-2.8); PHOSPHORUS 2.2 mg/dL (2.5-4.6)
[2018-09-07] MEDS: busPIRone 5 MG TABLET PO SCH ×2 (06:28→13:09)
[2018-09-07 08:22] LABS: BASOPHILS # (AUTO) 0.1 10^3/uL (0.0-0.1); EOSINOPHILS # (AUTO) 0.1 10^3/uL (0.0-0.7); EOSINOPHILS % (AUTO) 1.9 %; HGB - HEMOGLOBIN 12.5 g/dL (12.0-16.0); LYMPHOCYTES # (AUTO) 1.4 10^3/uL (1.5-3.5); LYMPHOCYTES % (AUTO) 19.8 %; MEAN CORPUSCULAR HEMOGLOBIN 29.5 pg (27.0-31.0); MEAN CORPUSCULAR HGB CONC 33.4 g/dL (32.0-36.0); MEAN CORPUSCULAR VOLUME 88.5 fL (81.0-99.0); MEAN PLATELET VOLUME 7.6 fL (7.9-10.8); MONOCYTES # (AUTO) 0.4 10^3/uL (0.0-1.0); MONOCYTES % (AUTO) 5.2 %; NEUTROPHILS % (AUTO) 72.1 %; PLT - PLATELET COUNT 216 10^3/uL (130-450); RED BLOOD COUNT 4.24 10^6/uL (4.20-5.40); WHITE BLOOD COUNT 6.9 x10^3/uL (4.8-10.8)
[2018-09-07 08:35] LABS: ALBUMIN 2.7 g/dL (3.2-5.5); ALBUMIN/GLOBULIN RATIO 0.8 (1.0-2.2); BILIRUBIN,TOTAL 0.5 mg/dL (0.2-1.0); CALCIUM 8.1 mg/dL (8.5-10.3); CREATININE 0.5 mg/dL (0.4-1.0); TOTAL PROTEIN 6.1 g/dL (6.7-8.2)
[2018-09-07] MEDS: FAMOTIDINE 20 MG TABLET PO SCH (08:49)
[2018-09-07] MEDS: NEUTRA-PHOS 250 MG TABLET PO SCH ×2 (08:50→13:09)
[2018-09-07] MEDS: CHLORHEXIDINE GLUCONATE 15 ML UDC PO SCH (08:50)
[2018-09-07] MEDS: ENOXAPARIN 40 MG/0.4 ML SYRINGE SUBQ SCH (08:50)
[2018-09-07] MEDS: MEGESTROL 400 MG/10 ML UDC PO SCH (08:50)
[2018-09-07] MEDS: POLYETHYLENE GLYCOL 3350 17 GM PACKET PO SCH (08:50)
[2018-09-07] MEDS: SODIUM CHLORIDE FLUSH 0.9% 10 ML SYRINGE IVP SCH (08:50)
[2018-09-07] MEDS: QUEtiapine 100 MG TABLET PO SCH (08:52)
--- NOTE | 2018-09-07 10:44 | Discharge Plan ---
Discharge Plan Disposition: 50 Hospice/Home DC/Xfer Condition: Poor Prescriptions: Morphine Sulfate [Morphine Sulf Oral (Roxanol)] 5 mg PO Q2H PRN #30 ml PRN Reason: Pain/Dyspnea Nitrofurantoin [Macrobid] 100 mg PO BID #10 capsule Diet: Soft Additional Instructions or Follow Up instructions: You may followup hospice care when you are arrival to your home. No Smoking: If you smoke, Please STOP! Call for help. Follow-up with: Angel Browning MD [Provider Admit Priv/Credential] -
--- NOTE | 2018-09-07 10:49 | DISCHARGE SUMMARY ---
"Discharge Summary Discharge Date: 09/07/18 Discharging Provider: WARD Primary Care Provider: Dr. Browning Condition at Discharge: Poor Discharge Disposition: 50 Hospice/Home DC/Xfer Discharge Facility Name: home - DIAGNOSES Admission Diagnoses: (1) UTI (urinary tract infection) (2) Failure to thrive (3) Protein-calorie malnutrition, moderate (4) Dementia (5) Pressure ulcer (6) Multiple sclerosis (7) Dehydration (8) Hypokalemia Discharge Diagnoses with Status of Each Condition: (1) UTI (urinary tract infection) stable, continue antibiotic course, followup hospice care (2) Failure to thrive ST consult for pt, followup hospice care (3) Protein-calorie malnutrition, moderate director outpatient services consult with pt, followup hospice care (4) Dementia stable, followup hospice care (5) Pressure ulcer stable, followup hospice care (6) Multiple sclerosis followup hospice care (7) Dehydration resolved (8) Hypokalemia resolved (9) hospice care Palliative care consulted for pt. Pt's DPOA her daughter and her ex- agreed to transfer pt to hospice care. I called pt's DPOA and ex-, both agreed to transfer pt to home with hospice care today, all their questions were answered. - HPI History of Present Illness: refer from Dr. Rodarte's HPI for pt as the following: This is a 63-year-old woman with history of MS and dementia who lives with her ex- who is her caregiver and her DPOA. She is been in palliative care, hospice was discussed at the last visit but the patient did not want to be in hospice and the ex- states that she was cognitive during the conversation. Over the last couple of weeks she has had a progressive decline, not eating or drinking and she has multiple bedsores that it started all of a sudden. She is been bedbound for the last 6 months. On labs patient has a UTI although due to her demented status unable to convey dysuria but grimaces on p elvic palpation, is somewhat contracted, has K 3.3, BMI 20.1 and looks cachectic and chronically ill-appearing. VSS with bp 98/69 and appears to be dry clinically. She wants to be FULL code per DPOA. - CONSULTS | PROCEDURES Consultations: palliative care and refer to hospice care - HOSPITAL COURSE Hospital Course: pt was admitted for UTI, failure to thrive, weakness, and new onset of pressure ulcer. pt has hx of advanced dementia, and MS. Palliative care consulted for pt. pt's daughter DPOA and pt's caregiver, ex- agreed to transfer pt for hospice care. pt is prescribed antibiotics for her UTI. pt's daughter DPOA and pt's caregiver, ex- agreed to transfer pt to home with hospice care today. - ALLERGIES Allergies/Adverse Reactions: Allergies Allergy/AdvReac Type Severity Reaction Status Date / Time No Known Drug Allergies Allergy Verified 04/15/17 07:46 - MEDICATIONS Home Medications: Ambulatory Orders Medication Instructions Recorded Confirmed Buspirone HCl 10 mg PO TID 04/14/17 09/04/18 Quetiapine Fumarate [Seroquel] 100 mg PO BID 04/15/17 09/04/18 diazePAM [Diazepam] 5 mg PO Q8HR PRN 04/15/17 09/04/18 Trazodone HCl 100 mg PO QPM 09/04/18 09/04/18 Morphine Sulfate [Morphine Sulf 5 mg PO Q2H PRN #30 ml 09/07/18 Oral (Roxanol)] Nitrofurantoin [Macrobid] 100 mg PO BID #10 capsule 09/07/18 - PHYSICAL EXAM AT DISCHARGE General Appearance: positive: No acute distress, Alert. negative: Lethargic Eyes Bilateral: positive: Normal inspection, PERRL, No lid inflammation, Conjunctivae nml ENT: positive: ENT inspection nml, Pharynx nml, No signs of dehydration. negative: Purulent nasal drainage, Pharyngeal erythema, Oral lesions Neck: positive: Nml inspection, Thyroid nml, No JVD, Trachea midline. negative: Thyromegaly, Lymphadenopathy (R), Lymphadenopathy (L), Stiff neck, Swelling/bruising, Tracheal deviation Respiratory: positive: Chest non-tender, No respiratory distress, Breath sounds nml. negative: Wheezes, Rales, Rhonchi Cardiovascular: positive: Regular rate & rhythm, No murmur, No gallop. negative: Irregularly irregular, Extrasystoles, Tachycardia, Bradycardia, JVD present, Systolic murmur, Diastolic murmur Peripheral Pulses: positive: 2+ Abdomen: positive: Non-tender, No organomegaly, Nml bowel sounds, No distention. negative: Tenderness, Guarding, Rebound Back: positive: Nml inspection. negative: CVA tenderness (R), CVA tenderness (L) Skin: positive: Color nml, No rash, Warm, Dry. negative: Cyanosis, Diaphoresis, Pallor Extremities: positive: Non-tender, Full ROM, Nml appearance. negative: Calf tenderness, Joint swelling, Mitzi's sign/cords Neurologic/Psychiatric: positive: Weakness. negative: Sensory loss, Facial d nupur, Slurred/abnml speech, Depressed mood/affect - LABS Result Diagrams: 09/07/18 08:15 09/07/18 08:15 - SEPSIS Current Stage of Sepsis: Sepsis Possible source of Sepsis: Genitourinary Sepsis Criteria: Recorded Heart Rate greater than 90 bpm, SENIOR UNIX ADMINISTRATOR: altered consciousness (unrelated to primary neuro pathology), Renal: urine output less than 0.5ml/kg/hr for 2 hours or creatinine gr - FOLLOW UP Follow Up: pt may followup hospice team care when she is arrival to her home. - TIME SPENT Time Spent in Discharge (Minutes): 60"
[2018-09-07 12:48] VITALS: BP 104/71
== END 2018-09-07 13:35 | disposition hospice, home (50) ==
LOC: EDUNIT# → ED 17:39 → MS2 19:46
PROVIDERS: ADMIT Family Medicine; ATTEND Nurse Practitioner Gerontology
DX: N39.0 Urinary tract infection, site not specified (principal); B96.20 Unspecified Escherichia coli [E. coli] as the cause of diseases classified elsewhere; R62.7 Adult failure to thrive; Z68.1 Body mass index [BMI] 19.9 or less, adult; E44.0 Moderate protein-calorie malnutrition; F03.90 Unspecified dementia, unspecified severity, without behavioral disturbance, psychotic disturbance, mood disturbance, and anxiety; G35 Multiple sclerosis; E86.0 Dehydration; E87.6 Hypokalemia; L89.612 Pressure ulcer of right heel, stage 2; L89.151 Pressure ulcer of sacral region, stage 1; L89.121 Pressure ulcer of left upper back, stage 1; L89.141 Pressure ulcer of left lower back, stage 1; F32.9 Major depressive disorder, single episode, unspecified; E83.42 Hypomagnesemia; E83.39 Other disorders of phosphorus metabolism; R32 Unspecified urinary incontinence; H54.7 Unspecified visual loss; R15.9 Full incontinence of feces; Z66 Do not resuscitate; Z51.5 Encounter for palliative care
CPT/HCPCS: 36415; 51701; 71045; 76770; 80053; 80069; 81001; 83605; 83690; 83735; 84100; 84443; 85025; 85610; 87040; 87086; 87181; 92610; 93005; 96361; 96365; 96366; 96367; 96368; 96372; 99233; 99283; 99284; A6250; A9270; G0378; G8996; G8997; G8998; J1650; 81003

== ENCOUNTER 2018-09-07 13:42 | Outpatient (CLI) | payer MEDICAID | END 2018-09-07 13:43 | disposition home or self-care (01) | LOC: EMS 13:42 | PROVIDERS: ATTEND Surgery | DX: Z74.01 Bed confinement status (principal); Z51.5 Encounter for palliative care; N39.0 Urinary tract infection, site not specified; G35 Multiple sclerosis; F03.90 Unspecified dementia, unspecified severity, without behavioral disturbance, psychotic disturbance, mood disturbance, and anxiety; R13.10 Dysphagia, unspecified; L89.90 Pressure ulcer of unspecified site, unspecified stage | CPT/HCPCS: A0425; A0428 ==